=== PATIENT | male | born 1985 | race Hispanic/Latino ===

== ENCOUNTER 2018-12-05 23:35 | Emergency (ER) | payer SELFPAY ==
--- NOTE | 2018-12-06 03:18 | EDPHYS ---
Physician Documentation [facility] Name: Errol De Los Santos Age: 33 yrs Sex: Male : 1985 Arrival Date: 12/05/2018 Time: 23:36 Bed 10 Private MD: ED Physician Abel Logan HPI: 12/06 02:23 This 33 yrs old Male presents to ER via Ambulatory with complaints of Cough, cp Chills, Headache. 02:23 The patient or guardian reports cough, that is intermittent. Onset: The cp symptoms/episode began/occurred yesterday. 02:25 Severity of symptoms: in the emergency department the symptoms are unchanged, despite cp home interventions. 02:25 Associated signs and symptoms: Pertinent negatives: chest pain, ear ache, rhinorrhea, cp sore throat, vomiting. Historical: - Allergies: 12/05 23:48 No Known Allergies; jd3 - Home Meds: 23:48 None [Active]; jd3 - PMHx: 23:48 None; jd3 - PSHx: 23:48 None; jd3 - Immunization history:: Adult Immunizations up to date. - Social history:: Smoking status: Patient/guardian denies using tobacco. - Ebola Screening: : Patient negative for fever greater than or equal to 101.5 degrees Fahrenheit, and additional compatible Ebola Virus Disease symptoms. ROS: 12/06 02:30 Constitutional: Positive for chills, poor PO intake, Negative for body aches, fever. cp 02:30 Eyes: Negative for injury, pain, redness, and discharge. cp 02:30 ENT: Positive for sore throat, Negative for drainage from ear(s), ear pain, difficulty swallowing, difficulty handling secretions. 02:30 Neck: Negative for stiffness. 02:30 Respiratory: Positive for cough, with no reported sputum, Negative for shortness of breath, wheezing. 02:30 Abdomen/GI: Negative for abdominal pain, vomiting, diarrhea, constipation. 02:30 Skin: Negative for rash. 02:30 Neuro: Positive for headache, Negative for altered mental status, weakness. 02:30 All other systems are negative. Exam: 02:35 Constitutional: The patient appears in no acute distress, alert, awake, non-toxic, well cp developed, well nourished. 02:35 Head/Face: Normocephalic, atraumatic. cp 02:35 Eyes: Periorbital structures: appear normal, Conjunctiva: normal, no exudate, no injection, Lids and lashes: appear normal, bilaterally. 02:35 ENT: External ear(s): are unremarkable, Ear canal(s): are normal, clear, TM's: bulging, is not appreciated, bilaterally, dullness, bilaterally, erythema, is not appreciated, bilaterally, Nose: is normal, Mouth: Lips: moist, Oral mucosa: pink and intact, moist, Posterior pharynx: Airway: no evidence of obstruction, patent, Tonsils: no enlargement, no exudate, Uvula: midline, swelling, is not appreciated, erythema, that is mild, exudate, is not appreciated. 02:35 Neck: ROM/movement: is normal, is supple, without pain, no range of motions limitations, no meningismus, no nuchal rigidity, Lymph nodes: no appreciated lymphadenopathy. 02:35 Chest/axilla: Inspection: normal, Palpation: is normal, no crepitus, no tenderness. 02:35 Cardiovascular: Rate: normal, Rhythm: regular. 02:35 Respiratory: the patient does not display signs of respiratory distress, Respirations: normal, no use of accessory muscles, no retractions, no splinting, no tachypnea, labored breathing, is not present, Breath sounds: are clear throughout, no decreased breath sounds, no stridor, no wheezing. 02:35 Skin: no rash present. Vital Signs: 12/05 23:48 BP 153 / 96; Pulse 70; Resp 17 S; Temp 98.2(O); Pulse Ox 98% on R/A; Weight 108.86 kg jd3 (R); Height 5 ft. 4 in. (162.56 cm) (R); Pain 0/10; 23:48 Body Mass Index 41.20 (108.86 kg, 162.56 cm) jd3 MDM: 12/06 01:50 Patient medically screened. cp 02:30 Differential Diagnosis: Bronchitis Influenza Sinusitis Pharyngitis Otitis Media cp Pneumonia. 03:17 Data reviewed: vital signs, nurses notes, lab test result(s), and as a result, I will cp discharge patient. 03:17 Counseling: I had a detailed discussion with the patient and/or guardian regarding: the cp historical points, exam findings, and any diagnostic results supporting the discharge/admit diagnosis, lab results, to return to the emergency department if symptoms worsen or persist or if there are any questions or concerns that arise at home. 12/06 02:22 Order name: Influenza Screen (a \T\ B) cp 12/06 02:22 Order name: Strep cp 12/06 03:01 Order name: Throat Culture EDMS Administered Medications: No medications were administered Disposition: 12/06/18 03:18 Discharged to Home. Impression: Acute upper respiratory infection, unspecified. - Condition is Stable. - Discharge Instructions: Upper Respiratory Infection, Adult, Viral Respiratory Infection. - Prescriptions for Ibuprofen 800 mg Oral Tablet - take 1 tablet by ORAL route every 8 hours As needed take with food; 30 tablet. Tessalon Perles 100 mg Oral Capsule - take 2 capsule by ORAL route every 8 hours As needed; 20 capsule. - Medication Reconciliation Form, Thank You Letter, Antibiotic Education, Prescription Opioid Use form. - Follow up: Private Physician; When: 2 - 3 days; Reason: Worsening of condition. - Problem is new. - Symptoms are unchanged. Addendum: 12/07/2018 11:40 Co-signature as Attending Physician, Abel Logan MD I agree with the assessment and w a plan of care. Signatures: Dispatcher [employer] EDFL Yousif Judd PA PA cp Appiah, William, MD MD wa Davies, Jonathon, RN RN jAston Sheth RN RN fu Corrections: (The following items were deleted from the chart) 12/06 03:48 03:18 12/06/2018 03:18 Discharged to Home. Impression: Acute upper respiratory fu infection, unspecified. Condition is Stable. Forms are Medication Reconciliation Form, Thank You Letter, Antibiotic Education, Prescription Opioid Use. Follow up: Private Physician; When: 2 - 3 days; Reason: Worsening of condition. Problem is new. Symptoms are unchanged. cp
--- NOTE | 2018-12-06 03:18 | ER ---
Nurse's Notes [facility] Name: Errol De Los Santos Age: 33 yrs Sex: Male : 1985 Arrival Date: 12/05/2018 Time: 23:36 Bed 10 Private MD: Diagnosis: Acute upper respiratory infection, unspecified Presentation: 12/05 23:46 Presenting complaint: Patient states: "I have the cold chills since yesterday. I had a jd3 bad cough yesterday, bu that went away. today the chills and my thought is sore.". Transition of care: patient was not received from another setting of care. Onset of symptoms was December 04, 2018. Risk Assessment: Do you want to hurt yourself or someone else? Patient reports no desire to harm self or others. Initial Sepsis Screen: Does the patient meet any 2 criteria? No. Patient's initial sepsis screen is negative. Does the patient have a suspected source of infection? No. Patient's initial sepsis screen is negative. Care prior to arrival: None. 23:46 Method Of Arrival: Ambulatory j 23:46 Acuity: ALDO 4 jd3 Triage Assessment: 12/06 01:21 Headache History: Denies prior headaches. General: Appears in no apparent distress. jd3 comfortable, Behavior is calm, cooperative, appropriate for age. 01:21 Pain: Denies pain. Pain currently is 0 out of 10 on a pain scale. Pain began gradually, jd3 Also complains of no other associated symptoms. Neuro: Level of Consciousness is awake, alert, obeys commands, Oriented to person, place, time, situation, Appropriate for age. Cardiovascular: Denies chest pain, Capillary refill < 3 seconds Patient's skin is warm and dry. Respiratory: Airway is patent Respiratory effort is even, unlabored, Respiratory pattern is regular, symmetrical, Denies shortness of breath. GI: No signs and/or symptoms were reported involving the gastrointestinal system. : No signs and/or symptoms were reported regarding the genitourinary system. Derm: Skin is intact, Skin is dry, Skin is normal, Skin temperature is warm. Musculoskeletal: Circulation, motion, and sensation intact. Range of motion: intact in all extremities. Historical: - Allergies: 12/05 23:48 No Known Allergies; jd3 - Home Meds: 23:48 None [Active]; jd3 - PMHx: 23:48 None; jd3 - PSHx: 23:48 None; jd3 - Immunization history:: Adult Immunizations up to date. - Social history:: Smoking status: Patient/guardian denies using tobacco. - Ebola Screening: : Patient negative for fever greater than or equal to 101.5 degrees Fahrenheit, and additional compatible Ebola Virus Disease symptoms. Screenin/04 01:24 Abuse screen: Denies threats or abuse. Nutritional screening: No deficits noted. jd3 Tuberculosis screening: No symptoms or risk factors identified. Fall Risk Ambulatory Aid- None/Bed Rest/Nurse Assist (0 pts). Gait- Normal/Bed Rest/Wheelchair (0 pts) Mental Status- Oriented to own ability (0 pts). Total Rodriguez Fall Scale indicates No Risk (0-24 pts). Assessment: 01:25 Reassessment: see triage assessment. jd3 01:40 General: Appears in no apparent distress. comfortable, Behavior is calm, cooperative, fu appropriate for age, Reports chills for fever for sore throat for past 24 hours. Pain: Denies pain. Neuro: No deficits noted. Cardiovascular: Capillary refill < 3 seconds Patient's skin is warm and dry. Respiratory: Airway is patent Trachea midline Breath sounds are clear bilaterally. Respiratory: Reports cough that is productive, with greenish secretions in small amount. GI: Abdomen is round last BM yesterday. denies nausea, vomiting. : No signs and/or symptoms were reported regarding the genitourinary system. Musculoskeletal: No signs and/or symptoms reported regarding the musculoskeletal system. Vital Signs: 12/05 23:48 BP 153 / 96; Pulse 70; Resp 17 S; Temp 98.2(O); Pulse Ox 98% on R/A; Weight 108.86 kg jd3 (R); Height 5 ft. 4 in. (162.56 cm) (R); Pain 0/10; 23:48 Body Mass Index 41.20 (108.86 kg, 162.56 cm) jd3 ED Course: 23:36 Patient arrived in ED. am2 23:47 Triage completed. jd3 23:49 Arm band placed on. jd3 12/06 01:20 Aston Paz, RN is Primary Nurse. fu 01:24 Patient has correct armband on for positive identification. Bed in low position. Call jd3 light in reach. Side rails up X 1. 01:50 [facility] cp 01:50 Abel Logan MD is Attending Physician. cp 02:23 ED physician in patient room. fu 02:49 Strep Sent. fu 02:49 Influenza Screen (a \\T\\ B) Sent. fu 03:47 No provider procedures requiring assistance completed. Patient did not have IV access fu during this emergency room visit. Administered Medications: No medications were administered Outcome: 03:18 Discharge ordered by . cp 03:46 Discharged to home ambulatory. fu 03:46 Condition: good 03:46 Discharge instructions given to patient, Instructed on discharge instructions, follow up and referral plans. Demonstrated understanding of instructions, follow-up care, medications, Prescriptions given X 2. 03:48 Patient left the ED. fu Signatures: Yousif Judd PA PA cp Moreno, Amanda am2 Davies, Jonathon RN RN jAston Sheth RN RN fu
== END 2018-12-06 03:48 | disposition home or self-care (01) ==
LOC: ER 23:35
DX: J06.9 Acute upper respiratory infection, unspecified (principal)
CPT/HCPCS: 87070; 87081; 87804; 99283

== ENCOUNTER 2019-03-16 01:04 | Emergency (ER) | payer SELFPAY ==
[2019-03-16] MEDS ORDERED: NA CHLORIDE 0.9% 1,000 ML ONE (02:13)
[2019-03-16 02:24] LABS: Absolute Lymphocytes (CBC) 2.8 K/uL (0.7-4.9); Eosinophils % 3.2 % (0-4.4); Hematocrit 50.4 % (39.6-49.0); Lymphocytes % 36.3 % (15.3-44.8); MPV 9.8 fL (7.6-11.3); Monocytes % 8.3 % (3.3-12.3); RBC Red Blood Cell Count 6.03 M/uL (4.33-5.43)
[2019-03-16 02:37] LABS: Potassium 3.7 mmol/L (3.5-5.1)
[2019-03-16] MEDS ORDERED: CEFTRIAXONE/SWI 1gm 1 GM/10 ML SYR ONE ×2 (03:53→04:34)
[2019-03-16 04:40] LABS: Urine Bacteria <20 /HPF (NONE SEEN); Urine Culture Reflex Order NOT NEEDED; Urine RBC TNTC /HPF (NONE SEEN)
[2019-03-16 05:27] LABS: Urine Blood 3+ (NEG); Urine Glucose NEGATIVE (NEG); Urine Protein 3+ (NEG); Urine Specific Gravity 1.025 (1.005-1.030); Urine pH 6.5 (5.0-7.0)
--- NOTE | 2019-03-16 05:34 | ER ---
Nurse's Notes [facility] Name: Errol De Los Santos Age: 34 yrs Sex: Male : 1985 Arrival Date: 03/16/2019 Time: 01:07 Bed 5 Private MD: Diagnosis: Retention of urine;Hematuria Presentation: 03/16 01:17 Presenting complaint: Patient states: He has noticed blood in his urine for approx 2 tl1 days and then earlier tonight when he was urinating the flow stopped and he was unable to urinate anymore. Transition of care: patient was not received from another setting of care. Onset of symptoms was March 13, 2019. Risk Assessment: Do you want to hurt yourself or someone else? Patient reports no desire to harm self or others. Initial Sepsis Screen: Does the patient meet any 2 criteria? No. Patient's initial sepsis screen is negative. Does the patient have a suspected source of infection? No. Patient's initial sepsis screen is negative. Care prior to arrival: None. 01:17 Method Of Arrival: Ambulatory tl1 01:17 Acuity: ALDO 4 tl1 Historical: - Allergies: 01:19 No Known Allergies; tl1 - Home Meds: 01:19 None [Active]; tl1 - PMHx: 01:19 None; tl1 - PSHx: 01:19 None; tl1 - Immunization history:: Adult Immunizations up to date. - Social history:: Smoking status: Patient/guardian denies using tobacco, never smoked. - Ebola Screening: : Patient negative for fever greater than or equal to 101.5 degrees Fahrenheit, and additional compatible Ebola Virus Disease symptoms Patient denies exposure to infectious person Patient denies travel to an Ebola-affected area in the 21 days before illness onset. Screenin:43 Abuse screen: Denies threats or abuse. Denies injuries from another. Nutritional rr5 screening: No deficits noted. Tuberculosis screening: No symptoms or risk factors identified. Fall Risk None identified. Total Rodriguez Fall Scale indicates No Risk (0-24 pts). Assessment: 01:20 General: Appears in no apparent distress. comfortable, Behavior is calm, cooperative, rr5 appropriate for age. 01:20 Pain: Denies pain. Neuro: Level of Consciousness is awake, alert, obeys commands, rr5 Oriented to person, place, time, situation, Appropriate for age. Cardiovascular: Capillary refill < 3 seconds Patient's skin is warm and dry. Respiratory: Airway is patent Respiratory effort is even, unlabored, Respiratory pattern is regular, symmetrical. GI: No signs and/or symptoms were reported involving the gastrointestinal system. Abdomen is round non-distended, obese. : Urine is blood tinged, drop of urine red in color Reports inability to void, blood in urine. EENT: No signs and/or symptoms were reported regarding the EENT system. Derm: Skin is intact, Skin temperature is warm. Musculoskeletal: Circulation, motion, and sensation intact. Capillary refill < 3 seconds. 01:53 Reassessment: unable to pass urine. ED provider aware with order made and carried out. rr5 02:10 Reassessment: Patient appears in no apparent distress at this time. Patient and/or rr5 family updated on plan of care and expected duration. Pain level reassessed. Patient is alert, oriented x 3, equal unlabored respirations, skin warm/dry/pink. awaiting for results and urine sample. 03:00 Reassessment: Patient appears in no apparent distress at this time. Patient is alert, rr5 oriented x 3, equal unlabored respirations, skin warm/dry/pink. still un able to pass urine. ED provider aware with order made and carried out. 04:05 Reassessment: bladder irrigation done using NS 1500ml. blood clots noted. ED provider rr5 aware. 05:00 Reassessment: Patient appears in no apparent distress at this time. Patient and/or rr5 family updated on plan of care and expected duration. Pain level reassessed. Patient is alert, oriented x 3, equal unlabored respirations, skin warm/dry/pink. no complaints made. draining light red urine still with blood clots. 06:00 Reassessment: Patient appears in no apparent distress at this time. Patient and/or rr5 family updated on plan of care and expected duration. Pain level reassessed. Patient is alert, oriented x 3, equal unlabored respirations, skin warm/dry/pink. discharge instruction given and explained without complaints made. went home with Russ catheter in placed for follow up to urologist. Patient states symptoms have improved. Vital Signs: 01:19 BP 154 / 100; Pulse 74; Resp 17; Temp 98; Pulse Ox 98% ; Weight 113.4 kg; Height 5 ft. tl1 4 in. (162.56 cm); Pain 0/10; 02:00 BP 151 / 95; Pulse 88; Resp 16; Pulse Ox 100% on R/A; rr5 02:45 BP 141 / 75; Pulse 79; Resp 17; Pulse Ox 99% ; Pain 0/10; rr5 03:25 BP 131 / 70; Pulse 79; Resp 16; Pulse Ox 99% ; rr5 04:10 BP 132 / 65; Pulse 80; Resp 16; Pulse Ox 99% on R/A; rr5 05:05 BP 125 / 62; Pulse 72; Resp 15; Pulse Ox 98% on R/A; rr5 06:00 BP 129 / 70; Pulse 75; Resp 17; Temp 97.9; Pulse Ox 99% ; Pain 0/10; rr5 01:19 Body Mass Index 42.91 (113.40 kg, 162.56 cm) tl1 ED Course: 01:07 Patient arrived in ED. mr 01:12 Yousif Judd PA is PHCP. cp 01:12 Lele Olivas MD is Attending Physician. cp 01:19 Triage completed. tl1 01:20 Arm band placed on right wrist. tl1 01:20 Patient has correct armband on for positive identification. Placed in gown. Bed in low rr5 position. Call light in reach. Side rails up X2. Pulse ox on. NIBP on. 01:27 Filiberto Anthony, RN is Primary Nurse. rr5 01:43 Bladder scan completed. 258 ml. rr5 02:05 Inserted saline lock: 20 gauge in right forearm, using aseptic technique. Blood rr5 collected. 02:46 Bladder scan completed. 364ml. rr5 03:20 Russ cath inserted, using sterile technique, 16 Fr., by tn, balloon inflated, urine rr5 specimen collected. Patient tolerated well. bloody urine with blood clots noted. positive drain 500ml.ED provider aware. 03:54 CT Stone Protocol In Process Unspecified. EDMS 05:33 Zhanna Mcintyre MD is Referral Physician. gs 05:33 Angel Olivas MD is Referral Physician. gs 06:00 No provider procedures requiring assistance completed. IV discontinued, intact, rr5 bleeding controlled, No redness/swelling at site. Pressure dressing applied. Administered Medications: 02:07 Drug: NS 0.9% 1000 ml Route: IV; Rate: 1 bolus; Site: right forearm; rr5 02:50 Follow up: Response: No adverse reaction; IV Status: Completed infusion; IV Intake: rr5 1000ml 03:45 Drug: Rocephin - (cefTRIAXone) 2 grams Route: IVPB; Infused Over: 30 mins; Site: right rr5 forearm; 04:45 Follow up: Response: No adverse reaction; IV Status: Completed infusion; IV Intake: rr5 100ml Intake: 02:50 IV: 1000ml; Total: 1000ml. rr5 04:45 IV: 100ml; Total: 1100ml. rr5 Output: 03:20 Urine: 500ml (Russ); Total: 500ml. rr5 06:00 Urine: 400ml (Russ); Total: 900ml. rr5 Outcome: 05:34 Discharge ordered by . gs 06:00 Discharged to home ambulatory, with family. rr5 06:00 Condition: stable 06:00 Discharge instructions given to patient, family, Instructed on discharge instructions, follow up and referral plans. medication usage, russ catheter care Demonstrated understanding of instructions, follow-up care, medications, russ catheter care Prescriptions given X 1. 06:03 Patient left the ED. rr5 Signatures: Dispatcher [employer] Ami Larios FelicianoIda malin, RN RN tl1 Yousif Judd PA PA cp Starr, Gregory, MD MD gs Roque, Raymond, RN RN rr5
--- NOTE | 2019-03-16 05:34 | EDPHYS ---
Physician Documentation [facility] Name: Errol De Los Santos Age: 34 yrs Sex: Male : 1985 Arrival Date: 03/16/2019 Time: 01:07 Bed 5 Private MD: ED Physician Lele Olivas HPI: 03/16 01:25 This 34 yrs old Male presents to ER via Ambulatory with complaints of Urinary cp Problem. 01:25 The patient presents with urinary symptoms, unable to void, hematuria. cp 01:25 Onset: The symptoms/episode began/occurred noticed blood in urine times 2 days and cp inability to urinate started yesterday. Associated signs and symptoms: Pertinent negatives: abdominal pain, constipation, diarrhea, fever, vomiting. Severity of symptoms: in the emergency department the symptoms are unchanged, despite home interventions. The patient has not experienced similar symptoms in the past. Historical: - Allergies: 01:19 No Known Allergies; tl1 - Home Meds: 01:19 None [Active]; tl1 - PMHx: 01:19 None; tl1 - PSHx: 01:19 None; tl1 - Immunization history:: Adult Immunizations up to date. - Social history:: Smoking status: Patient/guardian denies using tobacco, never smoked. - Ebola Screening: : Patient negative for fever greater than or equal to 101.5 degrees Fahrenheit, and additional compatible Ebola Virus Disease symptoms Patient denies exposure to infectious person Patient denies travel to an Ebola-affected area in the 21 days before illness onset. ROS: 01:40 Constitutional: Negative for body aches, chills, fever, poor PO intake. cp 01:40 Eyes: Negative for injury, pain, redness, and discharge. cp 01:40 Cardiovascular: Negative for chest pain, edema, palpitations. 01:40 Respiratory: Negative for cough, shortness of breath, wheezing. 01:40 Abdomen/GI: Negative for abdominal pain, nausea, vomiting, and diarrhea, constipation, black/tarry stool, rectal bleeding. 01:40 Back: Negative for pain at rest, pain with movement. 01:40 : Positive for hematuria, difficulty urinating, Negative for penile pain, testicular pain 01:40 Neuro: Negative for altered mental status, headache, weakness. 01:40 All other systems are negative. Exam: 01:45 Constitutional: The patient appears in no acute distress, alert, awake, non-toxic, well cp developed, well nourished. 01:45 Head/Face: Normocephalic, atraumatic. cp 01:45 Eyes: Periorbital structures: appear normal, Conjunctiva: normal, no exudate, no injection, Sclera: no appreciated abnormality, Lids and lashes: appear normal, bilaterally. 01:45 ENT: External ear(s): are unremarkable, Nose: is normal, Mouth: Lips: moist, Oral mucosa: pink and intact, moist, Posterior pharynx: is normal, airway is patent, no erythema, no exudate. 01:45 Chest/axilla: Inspection: normal, Palpation: is normal, no crepitus, no tenderness. 01:45 Cardiovascular: Rate: normal, Rhythm: regular, Edema: is not appreciated, JVD: is not appreciated. 01:45 Respiratory: the patient does not display signs of respiratory distress, Respirations: normal, no use of accessory muscles, no retractions, no splinting, no tachypnea, labored breathing, is not present, Breath sounds: are clear throughout, no decreased breath sounds, no stridor, no wheezing. 01:45 Abdomen/GI: Inspection: abdomen appears normal, Palpation: abdomen is soft and non-tender, in all quadrants. 01:45 Back: CVA tenderness, is absent. Vital Signs: 01:19 BP 154 / 100; Pulse 74; Resp 17; Temp 98; Pulse Ox 98% ; Weight 113.4 kg; Height 5 ft. tl1 4 in. (162.56 cm); Pain 0/10; 02:00 BP 151 / 95; Pulse 88; Resp 16; Pulse Ox 100% on R/A; rr5 02:45 BP 141 / 75; Pulse 79; Resp 17; Pulse Ox 99% ; Pain 0/10; rr5 03:25 BP 131 / 70; Pulse 79; Resp 16; Pulse Ox 99% ; rr5 04:10 BP 132 / 65; Pulse 80; Resp 16; Pulse Ox 99% on R/A; rr5 05:05 BP 125 / 62; Pulse 72; Resp 15; Pulse Ox 98% on R/A; rr5 06:00 BP 129 / 70; Pulse 75; Resp 17; Temp 97.9; Pulse Ox 99% ; Pain 0/10; rr5 01:19 Body Mass Index 42.91 (113.40 kg, 162.56 cm) tl1 MDM: 01:12 Patient medically screened. cp 05:32 ED course: pt seen and examined hematuria and urinary obstruction possible bladder mass gs will keep russ in treat with abx refer to urology. 03/16 01:21 Order name: Urine Microscopic Only; Complete Time: 05:29 cp 03/16 01:52 Order name: Basic Metabolic Panel; Complete Time: 02:58 cp 03/16 02:58 Interpretation: Normal except: CL 108; GLUC 107; GFR 75. cp 03/16 01:52 Order name: CBC with Diff; Complete Time: 02:32 cp 03/16 02:32 Interpretation: Normal except: RBC 6.03; HCT 50.4. 03/16 01:52 Order name: Creatinine for Radiology; Complete Time: 02:58 cp 03/16 03:09 Order name: CT Stone Protocol 03/16 03:32 Order name: Urine Dipstick--Ancillary (enter results); Complete Time: 05:29 mw2 03/16 01:21 Order name: Bladder Scanner: pre and post void; Complete Time: 03:26 cp 03/16 01:21 Order name: Urine Dipstick-Ancillary (obtain specimen); Complete Time: 03:26 03/16 01:52 Order name: IV Saline Lock; Complete Time: 02:07 cp 03/16 01:52 Order name: Labs collected and sent; Complete Time: 02:07 03/16 04:23 Order name: Russ; Complete Time: 04:23 rr5 03/16 04:23 Order name: Bladder Irrigation; Complete Time: 04:23 rr5 Administered Medications: 02:07 Drug: NS 0.9% 1000 ml Route: IV; Rate: 1 bolus; Site: right forearm; rr5 02:50 Follow up: Response: No adverse reaction; IV Status: Completed infusion; IV Intake: rr5 1000ml 03:45 Drug: Rocephin - (cefTRIAXone) 2 grams Route: IVPB; Infused Over: 30 mins; Site: right rr5 forearm; 04:45 Follow up: Response: No adverse reaction; IV Status: Completed infusion; IV Intake: rr5 100ml Disposition: 03/17 01:31 Co-signature as Attending Physician, Lele Olivas MD. Disposition: 03/16/19 05:34 Discharged to Home. Impression: Retention of urine, Hematuria. - Condition is Stable. - Discharge Instructions: Hematuria, Adult, Acute Urinary Retention, Male, Russ Catheter Care, Adult, [id number]. - Prescriptions for Keflex 500 mg Oral Capsule - take 1 capsule by ORAL route every 12 hours for 10 days; 20 capsule. - Medication Reconciliation Form, Thank You Letter, Antibiotic Education, Prescription Opioid Use form. - Follow up: Zhanna Mcintyre MD; When: 2 - 3 days; Reason: Re-evaluation by your physician. Follow up: Angel Olivas MD; When: 2 - 3 days; Reason: Re-evaluation by your physician. Signatures: Dispatcher [employer] EDMS Ida Rodriguez RN RN tl1 Yousif Judd PA PA cp Starr, Gregory, MD MD Filiberto Anthony RN RN rr5 Corrections: (The following items were deleted from the chart) 03/16 06:03 05:34 03/16/2019 05:34 Discharged to Home. Impression: Retention of urine; Hematuria. rr5 Condition is Stable. Forms are Medication Reconciliation Form, Thank You Letter, Antibiotic Education, Prescription Opioid Use. Follow up: Zhanna Mcintyre; When: 2 - 3 days; Reason: Re-evaluation by your physician. Follow up: Angel Olivas; When: 2 - 3 days; Reason: Re-evaluation by your physician.
--- NOTE | 2019-03-18 11:43 | RAD REPORT ---
EXAM DESCRIPTION: CT ABDOMEN AND PELVIS WITHOUT CONTRAST. 03/16/2019 4:23 AM CDT CLINICAL HISTORY: Urinary retention COMPARISON: None. TECHNIQUE: Axial unenhanced [address] imaging of the abdomen and pelvis performed. Reformatted coronal and sagittal images reviewed. A dose reduction technique was utilized with automated exposure control according to patient size. FINDINGS: LOWER THORAX: Clear lung bases. Heart is normal in size. No pericardial fluid. ABDOMEN: LIVER/GALLBLADDER: Normal liver size and contour. Mild decreased attenuation due to fatty infiltrati on. Normal gallbladder. SPLEEN/PANCREAS: Normal spleen. Normal pancreas. KIDNEYS/ADRENAL GLANDS: Normal adrenal glands. Normal right and left kidney. RETROPERITONEAL VESSELS/NODES: Normal caliber aorta and inferior vena cava. No adenopathy. BOWEL: Small hiatal hernia. Normal remaining stomach. Small bowel loops appear normal. Appendix is n ot visualized. Mild descending and sigmoid colon diverticulosis. No diverticulitis. MESENTERY/PERITONEUM: No adenopathy. No ascites. No free air. Tiny fat-containing ventral hernia. PELVIS: BLADDER: There is a Herron catheter within the bladder. There is a hyperdense collection along the le ft bladder lumen which may represent blood products or mass. GENITAL ORGANS: The prostate appears normal. PERITONEUM: No pelvic free fluid or adenopathy. BONES AND SOFT TISSUES: Mild degenerative changes in the lower thoracic spine. No subluxation. Intac t bony pelvis. Normal hips. IMPRESSION: 1. Hyperdense collection in the left bladder lumen may represent blood products. A lobul ar solid mass is also within differential. 2. Mild fatty liver infiltration. 3. Small hiatal hernia. 4. Mild descending and sigmoid colon diverticulosis. No diverticulitis. Electronically signed by: Ciara Ryder DO 03/16/2019 4:26 AM CDT Due to temporary technical issues with the PACS/Fluency reporting system, reports are being signed by the in house radiologist as a courtesy to ensure prompt reporting. The interpreting radiologist is f janellely responsible for the content of the report.
== END 2019-03-16 06:03 | disposition home or self-care (01) ==
LOC: ER 01:04
DX: R31.9 Hematuria, unspecified (principal)
CPT/HCPCS: 36415; 51702; 74176; 76377; 80048; 81003; 81015; 85025; 96361; 96365; 99284; J0696; J7030

== ENCOUNTER 2020-09-23 10:01 | Emergency (ER) | payer SELFPAY ==
--- OUTSIDE RECORDS SUMMARY | 2020-09-23 10:02 | XMS REPORT | Continuity of Care Document ---
:1985 Author Organization [facility] t Address [address] [place] [address] Care Team Providers Name Role Phone Unavailable Unavailable Unavailable Problems Condition Condition Condition Status Onset Resolution Last Treating Co mments Source Name Details Category Date Date Treatment Clinician Date Carpal Carpal Diagnosis Active [facility] tunnel [facility] - syndrome syndrome [facility] Carpal Carpal Diagnosis Active [facility] tunnel tunnel [facility] - syndrome syndrome [facility] of left [facility] Right hand Right hand Diagnosis Active [facility] Clinics Left hand Left hand Diagnosis Active [facility] ent Clinics Allergies, Adverse Reactions, Alerts This patient has no known allergies or adverse reactions. Medications Ordered Filled Start Stop Current Ordering Indication Dosage Frequency Signature Comments Components Source Medication Medication Date Date Medication? Clinician (SIG) Name Name Carmine Lou 2018-09 2019- No Cecilio [address] [facility] - 00:00: 00:00 [facility] 00 :00 [facility] ent [facility] Procedures This patient has no known procedures. Encounters Start End Encounter Admission Attending Care Care Encounter Source Date/Time Date/Time Type Type Clinicians Facility Department ID 2019-08-19 2019-08-19 Outpatient Anastacia Ybarra [id number] [facility] 2019-07-08 2019-07-08 Outpatient Anastacia Ybarra [id number] [facility] 09:37:00 09:37:00 [facility] 2019-07-08 2019-07-08 Outpatient Anastacia Ybarra [id number] [facility] 09[facility] 09[facility] Results This patient has no known results.
[2020-09-23] MEDS ORDERED: KETOROLAC 30 MG/ML INJ ONE (10:40)
--- NOTE | 2020-09-23 11:52 | RAD REPORT ---
EXAM DESCRIPTION: RAD - Shoulder Right 2 View - 09/23/2020 10:39 am CLINICAL HISTORY: Right shoulder pain FINDINGS: No fracture or dislocation is seen. Mild narrowing AC joint
--- NOTE | 2020-09-23 11:55 | ER ---
Nurse's Notes [facility] Name: Errol De Los Santos Age: 35 yrs Sex: Male : 1985 Arrival Date: 09/23/2020 Time: 10:04 Bed 23 Private MD: Diagnosis: Pain in right shoulder Presentation: 09/23 10:10 Chief complaint: Patient states: R shoulder pain for 2 weeks. Fell off a ladder 2 weeks ll1 ago. Coronavirus screen: Client denies travel out of the [place] in the last 14 days. At this time, the client does not indicate any symptoms associated with coronavirus-19. Ebola Screen: Patient denies travel to an Ebola-affected area in the 21 days before illness onset. Initial Sepsis Screen: Does the patient meet any 2 criteria? No. Patient's initial sepsis screen is negative. Does the patient have a suspected source of infection? Yes: Bone or joint infection. Risk Assessment: Do you want to hurt yourself or someone else? Patient reports no desire to harm self or others. Onset of symptoms was September 09, 2020. 10:10 Method Of Arrival: Ambulatory ll1 10:10 Acuity: ALDO 4 ll1 Historical: - Allergies: 10:09 No Known Allergies; ll1 - PMHx: 10:09 None; ll1 - PSHx: 10:09 None; ll1 - Immunization history:: Flu vaccine is not up to date. - Social history:: Smoking status: Patient denies any tobacco usage or history of. Screenin:50 Abuse screen: Denies threats or abuse. Denies injuries from another. Nutritional ph screening: No deficits noted. Tuberculosis screening: No symptoms or risk factors identified. Fall Risk None identified. Assessment: 11:49 General: Appears in no apparent distress. comfortable, Behavior is calm, cooperative, ph appropriate for age. Pain: Complains of pain in anterior aspect of right shoulder and posterior aspect of right shoulder Pain does not radiate. Neuro: Level of Consciousness is awake, alert, obeys commands, Oriented to person, place, time, situation. Cardiovascular: Capillary refill < 3 seconds in bilateral fingers Patient's skin is warm and dry. Respiratory: Airway is patent Respiratory effort is even, unlabored. Derm: Skin is intact, is healthy with good turgor, Skin is pink, warm \T\ dry. Musculoskeletal: Circulation, motion, and sensation intact. Range of motion: intact in all extremities. Vital Signs: 10:10 BP 158 / 99; Pulse 74; Resp 18; Temp 97.8; Pulse Ox 100% ; Weight 117.48 kg; Height 5 ll1 ft. 3 in. (160.02 cm); Pain 7/10; 12:27 BP 137 / 86; Pulse 74; Resp 18; Temp 97.9; Pulse Ox 99% on R/A; ph 10:10 Body Mass Index 45.88 (117.48 kg, 160.02 cm) ll1 ED Course: 10:04 Patient arrived in ED. mr 10:09 Arm band placed on Patient placed in an exam room, on a stretcher. ll1 10:11 Triage completed. 1 10:13 Alex Grimes PA is PHCP. m 10:13 Jerson Batres MD is Attending Physician. m 10:14 Nadine Ortega RN is Primary Nurse. ph 10:39 Shoulder Right (2 View) XRAY In Process Unspecified. EDMS 11:50 Patient has correct armband on for positive identification. Bed in low position. Call ph light in reach. Side rails up X 1. Door closed. Noise minimized. 11:55 Garcia Mendiola MD is Referral Physician. [facility] 12:28 No provider procedures requiring assistance completed. Patient did not have IV access ph during this emergency room visit. Administered Medications: 10:38 Drug: Ketorolac 30 mg Route: IM; Site: right deltoid; ph 12:27 Follow up: Response: No adverse reaction ph Outcome: 11:55 Discharge ordered by . [facility] 12:28 Discharged to home ambulatory. ph 12:28 Condition: good 12:28 Discharge instructions given to patient, Instructed on discharge instructions, follow up and referral plans. medication usage, Demonstrated understanding of instructions, follow-up care, medications, Prescriptions given X 1. 12:29 Patient left the ED. ph Signatures: Dispatcher [employer] EDMS Alex Grimes PA PA jmm Rivermartin Ami Nadine Ortega, RN RN ph Carmita Andrew RN RN [facility]
--- NOTE | 2020-09-23 11:55 | EDPHYS ---
Physician Documentation [facility] Name: Errol De Los Santos Age: 35 yrs Sex: Male : 1985 Arrival Date: 09/23/2020 Time: 10:04 Bed 23 Private MD: ED Physician Jerson Batres HPI: 09/23 10:18 This 35 yrs old Male presents to ER via Ambulatory with complaints of Shoulder jmm Pain. 10:18 The patient or guardian complains of an injury, pain. Onset: The symptoms/episode jmm began/occurred acutely, 2 week(s) ago. Modifying factors: the symptoms are alleviated by nothing. The symptoms are aggravated by movement. Associated signs and symptoms: Pertinent negatives: chest pain. This is a 35 year old male with no chronic medical conditions that presents to the ED with complaints of right shoulder pain which occurred after a fall. Patient states falling 6 feet from a ladder and have continued anterior shoulder pain. Denies chest pain, denies shortness of breath. Historical: - Allergies: 10:09 No Known Allergies; ll1 - PMHx: 10:09 None; ll1 - PSHx: 10:09 None; ll1 - Immunization history:: Flu vaccine is not up to date. - Social history:: Smoking status: Patient denies any tobacco usage or history of. ROS: 10:18 Constitutional: Negative for fever, chills, and weight loss, Cardiovascular: Negative jmm for chest pain, palpitations, and edema, Respiratory: Negative for shortness of breath, cough, wheezing, and pleuritic chest pain. 10:18 MS/extremity: Positive for injury or acute deformity, pain. 10:18 All other systems are negative. Exam: 10:18 Constitutional: This is a well developed, well nourished patient who is awake, alert, jmm and in no acute distress. Head/Face: atraumatic. Eyes: EOMI, no conjunctival erythema appreciated ENT: Moist Mucus Membranes Neck: Trachea midline, Supple Chest/axilla: Normal chest wall appearance and motion. Cardiovascular: Regular rate and rhythm. No edema appreciated Respiratory: Normal respirations, no respiratory distress appreciated Abdomen/GI: Non distended, soft Back: Normal ROM Skin: General appearance color normal 10:18 Skin: right anterior shoulder ttp, full senior marketing manager strength, abduction full, pain elicited on ROM. 10:18 Neuro: Orientation: is normal, Mentation: is normal, Memory: is normal. 10:18 Psych: Behavior/mood is pleasant, cooperative. Vital Signs: 10:10 BP 158 / 99; Pulse 74; Resp 18; Temp 97.8; Pulse Ox 100% ; Weight 117.48 kg; Height 5 ll1 ft. 3 in. (160.02 cm); Pain 7/10; 12:27 BP 137 / 86; Pulse 74; Resp 18; Temp 97.9; Pulse Ox 99% on R/A; ph 10:10 Body Mass Index 45.88 (117.48 kg, 160.02 cm) ll1 MDM: 10:15 Patient medically screened. dylan 11:53 Data reviewed: vital signs, nurses notes. Counseling: I had a detailed discussion with jackie the patient and/or guardian regarding: the historical points, exam findings, and any diagnostic results supporting the discharge/admit diagnosis, radiology results, the need for outpatient follow up, to return to the emergency department if symptoms worsen or persist or if there are any questions or concerns that arise at home. ED course: Imaging studies negative for an acute process. patient is advised to follow up with ortho for further evaluation. Patient understood and agrees with the plan of care. . 09/23 10:18 Order name: Shoulder Right (2 View) XRAY; Complete Time: 11:53 jackie Administered Medications: 10:38 Drug: Ketorolac 30 mg Route: IM; Site: right deltoid; ph 12:27 Follow up: Response: No adverse reaction ph Disposition: 09/23/20 11:55 Discharged to Home. Impression: Pain in right shoulder. - Condition is Stable. - Discharge Instructions: Shoulder Pain. - Prescriptions for Ibuprofen 800 mg Oral Tablet - take 1 tablet by ORAL route every 8 hours As needed take with food; 30 tablet. - Medication Reconciliation Form, Thank You Letter, Antibiotic Education, Prescription Opioid Use form. - Follow up: Garcia Mendiola MD; When: 2 - 3 days; Reason: Recheck today's complaints, Continuance of care, Re-evaluation by your physician. Addendum: 09/26/2020 07:01 Co-signature as Attending Physician, Jerson Batres MD. r n Signatures: Dispatcher [employer] EDMS Alex Grimes PA PA jmm Nieto, Jerson, MD MD rn Nadine Ortega RN RN ph Carmita Andrew RN RN ll1 Corrections: (The following items were deleted from the chart) 09/23 12:29 11:55 09/23/2020 11:55 Discharged to Home. Impression: Pain in right shoulder. ph Condition is Stable. Forms are Medication Reconciliation Form, Thank You Letter, Antibiotic Education, Prescription Opioid Use. Follow up: Garcia Mendiola; When: 2 - 3 days; Reason: Recheck today's complaints, Continuance of care, Re-evaluation by your physician. jackie
[2020-09-23 12:35] VITALS: BP 137/86; TEMP 97.9; O2SAT 99
== END 2020-09-23 12:29 | disposition home or self-care (01) ==
LOC: ER 10:01
DX: M25.511 Pain in right shoulder (principal)
CPT/HCPCS: 96372; 99283

== ENCOUNTER 2020-12-16 12:01 | Emergency (ER) | payer SELFPAY ==
--- OUTSIDE RECORDS SUMMARY | 2020-12-16 12:04 | XMS REPORT | Continuity of Care Document ---
:1985 Author Organization [facility] t Address [address] [place] [address] Care Team Providers Name Role Phone Unavailable Unavailable Unavailable Problems Condition Condition Condition Status Onset Resolution Last Treating Co mments Source Name Details Category Date Date Treatment Clinician Date Carpal Carpal Diagnosis Active [facility] tunnel tunnel [facility] - syndrome syndrome [facility] Right hand Right hand Diagnosis Active [facility]ics Left hand Left hand Diagnosis Active [facility] ent Clinics Carpal Carpal Diagnosis Active [facility] tunnel tunnel [facility] - syndrome syndrome Mem[facility] of right of right l wrist [facility] Allergies, Adverse Reactions, Alerts This patient has no known allergies or adverse reactions. Medications Ordered Filled Start Stop Current Ordering Indication Dosage Frequency Signature Comments Components Source Medication Medication Date Date Medication? Clinician (SIG) Name Name Carmine Lou 2018-09 2019- No Cecilio [address] [facility] 09[facility] - 00:00: 00:00 Mem[facility] 00 :00 [facility] ent Clinics Procedures This patient has no known procedures. Encounters Start End Encounter Admission Attending Care Care Encounter Source Date/Time Date/Time Type Type Clinicians Facility Department ID 2019-08-19 2019-08-19 Outpatient Anastacia Ybarra [id number] [facility] 10[facility] 10[facility] Clin[facility] 2019-07-08 2019-07-08 Outpatient Anastacia Ybarra [id number] [facility] 09:37:00 09:37:00 [facility] ent Clinics 2019-07-08 2019-07-08 Outpatient Anastacia Ybarra [id number] [facility] 09:00:00 09:00:00 [facility] Results This patient has no known results.
[2020-12-16 12:52] LABS: Absolute Lymphocytes (CBC) 1.9 K/uL (0.7-4.9); Basophils % 1.2 % (0-1.3); Hematocrit 50.1 % (39.6-49.0); Lymphocytes % 27.5 % (15.3-44.8); MPV 9.1 fL (7.6-11.3); RBC Red Blood Cell Count 6.18 M/uL (4.33-5.43)
[2020-12-16 13:05] LABS: Protime INR 1.1
--- NOTE | 2020-12-16 13:11 | RAD REPORT ---
EXAM DESCRIPTION: Rodrigo Single View12/16/2020 12:56 pm CLINICAL HISTORY: Chest pain COMPARISON: none FINDINGS: The lungs appear clear of acute infiltrate. The heart is normal size IMPRESSION: No acute abnormalities displayed
[2020-12-16 13:13] LABS: ALT/SGPT 160 U/L (12-78); AST/SGOT 50 U/L (15-37); Alkaline Phosphatase 145 U/L (45-117); BUN Blood Urea Nitrogen 10 mg/dL (7-18); Bicarbonate 29 mmol/L (21-32); Bilirubin Direct 0.1 mg/dL (0-0.2); Bilirubin Total 0.6 mg/dL (0.2-1.0); Glucose Level 129 mg/dL (74-106); Magnesium 2.3 mg/dL (1.8-2.4); NT PRO-BNP 55 pg/mL (<125); Potassium 3.3 mmol/L (3.5-5.1); Protein, Total 7.9 g/dL (6.4-8.2); Sodium Level 138 mmol/L (136-145); Troponin (Emerg Dept Use Only) < 0.02 ng/mL (0.0-0.045)
[2020-12-16] MEDS ORDERED: METOPROLOL TARTRATE 5 MG/5 ML INJ IV ONE (13:44)
--- NOTE | 2020-12-16 14:32 | ER ---
Nurse's Notes [facility] Name: Errol De Los Santos Age: 35 yrs Sex: Male : 1985 Arrival Date: 12/16/2020 Time: 12:03 Bed 6 Private MD: Diagnosis: Palpitations;Hypertensive heart disease Presentation: 12/16 12:09 Chief complaint: Patient states: Fast HR since last night. Just doesn't feel good. No ll1 CP or SOB. Coronavirus screen: Client denies travel out of the [place] in the last 14 days. At this time, the client does not indicate any symptoms associated with coronavirus-19. Ebola Screen: Patient denies travel to an Ebola-affected area in the 21 days before illness onset. Initial Sepsis Screen: Does the patient meet any 2 criteria? HR > 90 bpm. No. Patient's initial sepsis screen is negative. Does the patient have a suspected source of infection? No. Patient's initial sepsis screen is negative. Risk Assessment: Do you want to hurt yourself or someone else? Patient reports no desire to harm self or others. Onset of symptoms was December 15, 2020. 12:09 Method Of Arrival: Ambulatory ll1 12:09 Acuity: ALDO 2 ll1 Historical: - Allergies: 12:11 No Known Allergies; ll1 - PMHx: 12:11 None; ll1 - PSHx: 12:11 None; ll1 - Immunization history:: Flu vaccine is not up to date. Client reports having NOT received the Covid vaccine. - Social history:: Smoking status: Patient denies any tobacco usage or history of. Screenin:50 Abuse screen: Denies threats or abuse. Denies injuries from another. Nutritional ld1 screening: No deficits noted. Tuberculosis screening: No symptoms or risk factors identified. Fall Risk IV access (20 points). Total Rodriguez Fall Scale indicates No Risk (0-24 pts). Assessment: 12:50 General: Appears in no apparent distress. comfortable, Behavior is calm, cooperative, ld1 appropriate for age. Pain: Denies pain. Pain: Denies pain. Pain does not radiate. Pain began Denies pain. Neuro: Level of Consciousness is awake, alert, obeys commands, Oriented to person, place, time, situation. Cardiovascular: Reports palpitations, Patient states he has been feeling jittery since yesterday 12/15/2020. Capillary refill < 3 seconds Patient's skin is warm and dry. Respiratory: Airway is patent Respiratory effort is even, unlabored, Respiratory pattern is regular, symmetrical. GI: Abdomen is round obese, Bowel sounds present X 4 quads. : No signs and/or symptoms were reported regarding the genitourinary system. EENT: No signs and/or symptoms were reported regarding the EENT system. Derm: No signs and/or symptoms reported regarding the dermatologic system. 13:17 Reassessment: ERP at bedside discussing POC. ld1 14:10 Reassessment: Patient and/or family updated on plan of care and expected duration. Pain ld1 level reassessed. Patient is alert, oriented x 3, equal unlabored respirations, skin warm/dry/pink. BP decreased to 164/106. Patient denies pain. Patient denies pain at this time. Vital Signs: 12:09 BP 218 / 124; Pulse 98; Resp 19; Temp 98.2; Pulse Ox 95% ; Weight 113.4 kg; Height 5 ll1 ft. 3 in. (160.02 cm); Pain 0/10; 12:39 BP 195 / 117; Pulse 89; iw 12:50 BP 198 / 142; Pulse 80; Resp 18; Temp 98.2; Pulse Ox 98% on R/A; Weight 113.4 kg; ld1 Height 5 ft. 9 in. (175.26 cm); Pain 0/10; 14:00 BP 164 / 106; Pulse 65; Resp 21; Pulse Ox 98% ; sv 14:30 BP 159 / 101; Pulse 67; iw 12:50 Body Mass Index 36.92 (113.40 kg, 175.26 cm) ld1 ED Course: 12:03 Patient arrived in ED. ds1 12:11 Triage completed. ll1 12:11 Arm band placed on Patient placed in an exam room, on a stretcher. ll1 12:17 Reshma Haas RN is Primary Nurse. ld1 12:46 Nicholas Gonzalez MD is Attending Physician. kdr 12:50 Patient has correct armband on for positive identification. Placed in gown. Bed in low ld1 position. Call light in reach. Side rails up X 1. quality assurance monitor final on. Pulse ox on. NIBP on. Notified ED physician of other BP 198/114. 12:50 No provider procedures requiring assistance completed. Inserted saline lock: 20 gauge ld1 in right antecubital area, using aseptic technique. Blood collected. Patient maintains SpO2 saturation greater than 95% on room air. 12:54 XRAY Chest (1 view) In Process Unspecified. EDMS 14:44 IV discontinued, intact, bleeding controlled, No redness/swelling at site. Pressure iw dressing applied. Administered Medications: 13:40 Drug: Lopressor (metoprolol) 5 mg Route: IVP; Site: right antecubital; ld1 14:00 Follow up: Response: No adverse reaction; Blood pressure is lowered iw 14:43 Drug: Lisinopril 10 mg Route: PO; iw 14:44 Follow up: Response: No adverse reaction iw Outcome: 14:31 Discharge ordered by . kdr 14:44 Discharged to home ambulatory, with family. iw 14:44 Condition: good 14:44 Discharge instructions given to patient, Instructed on discharge instructions, follow up and referral plans. medication usage, Demonstrated understanding of instructions, follow-up care, medications, Prescriptions given X 1. 14:45 Patient left the ED. iw Signatures: Dispatcher [employer] EDMS Ehsa Lubin RN RN sv Rittger, Kevin, MD MD kdr Sanford, Demi ds1 Genny Lopez RN RN iw Lewis, Lynsay, RN RN ll1 Reshma Haas RN RN ld1
--- NOTE | 2020-12-16 14:32 | EDPHYS ---
Physician Documentation [facility] Name: Errol De Los Santos Age: 35 yrs Sex: Male : 1985 Arrival Date: 12/16/2020 Time: 12:03 Bed 6 Private MD: ED Physician Nicholas Gonzalez Historical: - Allergies: 12/16 12:11 No Known Allergies; ll1 - PMHx: 12:11 None; ll1 - PSHx: 12:11 None; ll1 - Immunization history:: Flu vaccine is not up to date. Client reports having NOT received the Covid vaccine. - Social history:: Smoking status: Patient denies any tobacco usage or history of. Exam: 14:44 ECG was reviewed by the Attending Physician. kdr Vital Signs: 12:09 BP 218 / 124; Pulse 98; Resp 19; Temp 98.2; Pulse Ox 95% ; Weight 113.4 kg; Height 5 ll1 ft. 3 in. (160.02 cm); Pain 0/10; 12:39 BP 195 / 117; Pulse 89; iw 12:50 BP 198 / 142; Pulse 80; Resp 18; Temp 98.2; Pulse Ox 98% on R/A; Weight 113.4 kg; ld1 Height 5 ft. 9 in. (175.26 cm); Pain 0/10; 14:00 BP 164 / 106; Pulse 65; Resp 21; Pulse Ox 98% ; sv 14:30 BP 159 / 101; Pulse 67; iw 12:50 Body Mass Index 36.92 (113.40 kg, 175.26 cm) ld1 MDM: 14:31 Patient medically screened. kdr 12/16 12:37 Order name: Basic Metabolic Panel iw 12/16 12:37 Order name: CBC with Diff iw 12/16 12:37 Order name: LFT's iw 12/16 12:37 Order name: Magnesium iw 12/16 12:37 Order name: NT PRO-BNP; Complete Time: 14:29 iw 12/16 12:37 Order name: PT-INR; Complete Time: 14:29 iw 12/16 12:37 Order name: Troponin (emerg Dept Use Only); Complete Time: 14:29 iw 12/16 12:37 Order name: XRAY Chest (1 view); Complete Time: 14:29 iw 12/16 12:37 Order name: Basic Metabolic Panel; Complete Time: 14:29 EDMN 12/16 12:37 Order name: CBC with Automated Diff; Complete Time: 14:29 EDMN 12/16 12:37 Order name: Liver (Hepatic) Function; Complete Time: 14:29 EDMS 12/16 12:37 Order name: Magnesium; Complete Time: 14:29 EDMN 12/16 12:37 Order name: EKG; Complete Time: 12:40 iw 12/16 12:37 Order name: Cardiac monitoring; Complete Time: 12:45 iw 12/16 12:37 Order name: EKG - Nurse/Tech; Complete Time: 12:44 iw 12/16 12:37 Order name: IV Saline Lock; Complete Time: 12:44 iw 12/16 12:37 Order name: Labs collected and sent; Complete Time: 12:44 iw 12/16 12:37 Order name: O2 Per Protocol; Complete Time: 12:44 iw 12/16 12:37 Order name: O2 Sat Monitoring; Complete Time: 12:44 iw EC:44 Rate is 81 beats/min. Rhythm is regular, Sinus Rhythm with No ectopy. QRS [place] is kdr Normal. ND interval is normal. QRS interval is normal. QT interval is normal. Clinical impression: NSR w/ Non-specific ST/T Changes. Administered Medications: 13:40 Drug: Lopressor (metoprolol) 5 mg Route: IVP; Site: right antecubital; ld1 14:00 Follow up: Response: No adverse reaction; Blood pressure is lowered iw 14:43 Drug: Lisinopril 10 mg Route: PO; iw 14:44 Follow up: Response: No adverse reaction iw Disposition: 12/16/20 14:31 Discharged to Home. Impression: Palpitations, Hypertensive heart disease. - Condition is Stable. - Discharge Instructions: Hypertension, [id number], Palpitations, [id number]. - Prescriptions for Lisinopril 10 mg Oral Tablet - take 1 tablet by ORAL route once daily; 20 tablet. - Medication Reconciliation Form, Thank You Letter form. - Follow up: Private Physician; When: 2 - 3 days; Reason: If symptoms return, Further diagnostic work-up, Recheck today's complaints, Continuance of care, Re-evaluation by your physician. - Problem is new. - Symptoms have improved. Addendum: 01/04/2021 09:03 Addendum: CC: Fast heart rate, HPI The patient states that since last night, he has k dr felt his heart rate was fast. He has no other associated s/s and specifically denies CP or SOB. He has not been on any medications recently for BP control. ROS: 10 point ROS is negative except for palpitations. EXAM: WDWN HM NAD, Card: RRR N; S1,2, no gallops/rubs or murmurs. The patient is noted to be hypertensive. Lungs: CTAB, RR, Abd: Soft NT, BS normal, Back: no pain on palpation or ROM, Remaining exam all normal or within normal limits MDM: The patient responded will to interventions given and his BP improved remarkable. He was happy with the care provided and the plan for discharge and follow-up. Signatures: Dispatcher [employer] [facility] Nicholas Gonzalez MD MD kdr Genny Lopez RN RN iw Carmita Andrew RN RN ll1 Reshma Haas RN RN ld1 Corrections: (The following items were deleted from the chart) 12/16 13:01 12:56 URINE --ANCILLARY+[email or web address].BRZ ordered. [facility] 14:45 14:31 12/16/2020 14:31 Discharged to Home. Impression: Palpitations; Hypertensive heart iw disease. Condition is Stable. Forms are Medication Reconciliation Form, Thank You Letter, Antibiotic Education, Prescription Opioid Use. Follow up: Private Physician; When: 2 - 3 days; Reason: If symptoms return, Further diagnostic work-up, Recheck today's complaints, Continuance of care, Re-evaluation by your physician. Problem is new. Symptoms have improved. kdr
[2020-12-16 14:51] VITALS: TEMP 98.2
[2020-12-16 14:54] VITALS: O2SAT 98
[2020-12-16] MEDS ORDERED: lisinopriL 10 MG TAB ONE (14:55)
[2020-12-16 14:56] VITALS: BP 159/101
--- NOTE | 2020-12-17 07:37 | EKG ---
Test Date: 2020-12-16 Test Time: 12:40:30 Foot Drill Operator: ESTELA MEASUREMENT RESULTS: Intervals: Rate: 81 IA: 158 QRSD: 96 QT: 356 QTc: 413 [place]: P: 14 IA: 158 QRS: 38 T: 64 INTERPRETIVE STATEMENTS: Normal sinus rhythm Nonspecific T wave abnormality Abnormal ECG No previous ECG available for comparison Electronically Signed On 12-17-20 07:34:44 CDT by Jason Loera
== END 2020-12-16 14:45 | disposition home or self-care (01) ==
LOC: ER 12:01
DX: I11.9 Hypertensive heart disease without heart failure (principal)
CPT/HCPCS: 36415; 71045; 80048; 80076; 83735; 83880; 84484; 85025; 85610; 93005; 96374; 99285

== ENCOUNTER 2021-01-09 04:37 | Emergency (ER) | payer OTHER, SELFPAY ==
--- OUTSIDE RECORDS SUMMARY | 2021-01-09 04:40 | XMS REPORT | Continuity of Care Document ---
:1985 Author Organization [facility] t Address [address] [place] [address] Care Team Providers Name Role Phone Unavailable Unavailable Unavailable Problems Condition Condition Condition Status Onset Resolution Last Treating Co mments Source Name Details Category Date Date Treatment Clinician Date Carpal Carpal Diagnosis Active [facility] Right hand Right hand Diagnosis Active [facility] pain pain [facility] Left hand Left hand Diagnosis Active [facility] pain pain [facility] Carpal Carpal Diagnosis Active [facility] 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 Medications Ordered Filled Start Stop Current Ordering Indication Dosage Frequency Signature Comments Components Source Medication Medication Date Date Medication? Clinician (SIG) Name Name Carmine Lou 2018-09 2019- No Cecilio [address] [facility] 09-07 [facility] - 00:00: 00:00 [facility] 00 :00 [facility] ent Clinics Procedures This patient has no known procedures. Encounters Start End Encounter Admission Attending Care Care Encounter Source Date/Time Date/Time Type Type Clinicians Facility Department ID 2019-08-19 2019-08-19 Outpatient Anastacia Ybarra [id number] [facility] 10[facility] 10[facility] [place] Clinics 2019-07-08 2019-07-08 Outpatient Anastacia Ybarra [id number] [facility] 09:37:00 09:37[facility]00 [facility] Clinics 2019-07-08 2019-07-08 Outpatient Anastacia Ybarra [id number] [facility] 09:[facility]:00 09:00:[facility] t [facility] Results This patient has no known results.
[2021-01-09 05:30] LABS: Absolute Lymphocytes (CBC) 2.5 K/uL (0.7-4.9); Basophils % 1.3 % (0-1.3); Hematocrit 47.3 % (39.6-49.0); Lymphocytes % 35.2 % (15.3-44.8); MPV 9.9 fL (7.6-11.3); RBC Red Blood Cell Count 5.79 M/uL (4.33-5.43)
[2021-01-09] MEDS ORDERED: MORPHINE 4 MG/ML SYR ONE (05:36)
[2021-01-09] MEDS ORDERED: ONDANSETRON 4 MG/2 ML VIAL ONE (05:37)
[2021-01-09 05:43] LABS: Urine Blood Negative (Negative); Urine Glucose Negative (Negative); Urine Protein Negative (Negative); Urine Specific Gravity >=1.030 (1.005-1.030)
[2021-01-09 05:53] LABS: ALT/SGPT 102 U/L (12-78); AST/SGOT 34 U/L (15-37); Albumin 3.9 g/dL (3.4-5.0); Alkaline Phosphatase 128 U/L (45-117); BUN Blood Urea Nitrogen 15 mg/dL (7-18); Bicarbonate 26 mmol/L (21-32); Bilirubin Direct 0.1 mg/dL (0-0.2); Bilirubin Total 0.6 mg/dL (0.2-1.0); Glucose Level 101 mg/dL (74-106); Lipase 219 U/L (73-393); Potassium 3.6 mmol/L (3.5-5.1); Protein, Total 7.4 g/dL (6.4-8.2); Sodium Level 142 mmol/L (136-145); Troponin (Emerg Dept Use Only) < 0.02 ng/mL (0.0-0.045)
[2021-01-09 06:01] LABS: Barbiturates NEGATIVE (NEGATIVE); Benzodiazepines NEGATIVE (NEGATIVE); Cocaine NEGATIVE (NEGATIVE); METHAMPHETAM NEGATIVE (NEGATIVE); Methadone NEGATIVE (NEGATIVE); Opiates NEGATIVE (NEGATIVE); Phencyclidine NEGATIVE (NEGATIVE); THC Cannibis NEGATIVE (NEGATIVE)
--- NOTE | 2021-01-09 09:25 | RAD REPORT ---
EXAM DESCRIPTION: CTAbdomen Pelvis W Contrast - 01/09/2021 7:54 am CLINICAL HISTORY: Abdominal pain. ABD PAIN COMPARISON: Chest For Pe Angio dated 01/09/2021 TECHNIQUE: Biphasic CT imaging of the abdomen and pelvis was performed with 100 ml non-ionic IV cont rast. All CT scans are performed using dose optimization technique as appropriate and may include automated exposure control or mA/KV adjustment according to patient size. FINDINGS: The lung bases are clear. The liver, spleen, pancreas, adrenal glands and kidneys are within normal limits. No bowel obstruction, free air, free fluid or abscess. Small fat containing umbilical hernia. The lorena endix is normal. No evidence of significant lymphadenopathy. No suspicious bony findings. IMPRESSION: No acute intra-abdominal or pelvic finding.
--- NOTE | 2021-01-09 09:26 | RAD REPORT ---
EXAM DESCRIPTION: CT - Chest For Pe Angio - 01/09/2021 7:54 am CLINICAL HISTORY: Chest pain. CHEST PAIN COMPARISON: No comparisons TECHNIQUE: CT angiogram of the pulmonary arteries was performed with MIP. All CT scans are performed using dose optimization technique as appropriate and may include automated exposure control or mA/KV adjustment according to patient size. FINDINGS: No evidence of pulmonary thromboembolism. No acute aortic finding demonstrated. The lungs are clear. No significant pericardial or pleural fluid. No concerning bony finding. IMPRESSION: No evidence of pulmonary thromboembolism. No acute lung findings.
--- NOTE | 2021-01-09 09:40 | RAD REPORT ---
EXAM DESCRIPTION: RAD - Chest Single View - 01/09/2021 5:22 am CLINICAL HISTORY: COUGH Chest pain. COMPARISON: Chest Single View dated 12/16/2020 FINDINGS: Portable technique limits examination quality. The lungs are grossly clear. The heart is normal in size. No displaced fractures. IMPRESSION: No acute intrathoracic process suspected.
--- NOTE | 2021-01-09 10:02 | ER ---
Nurse's Notes [facility] Name: Errol De Los Santos Age: 35 yrs Sex: Male : 1985 Arrival Date: 01/09/2021 Time: 04:40 Bed 17 Private MD: Diagnosis: Abdominal tenderness;Chest pain, unspecified-non cardiac;Functional dyspepsia;Obesity, unspecified Presentation: 01/09 04:58 Chief complaint: Patient states: around 2100 last night he started feeling a sharp bb chest pain with abdominal pain the pain is intermittent pt denies SOB, vomiting or diarrhea. Pt saw improvement nurse yesterday and is scheduled for an upcoming stress test also pt's younger brother 11/12/20 of an PR. Coronavirus screen: At this time, the client does not indicate any symptoms associated with coronavirus-19. Ebola Screen: No symptoms or risks identified at this time. Initial Sepsis Screen: Does the patient meet any 2 criteria? No. Patient's initial sepsis screen is negative. Does the patient have a suspected source of infection? No. Patient's initial sepsis screen is negative. Risk Assessment: Do you want to hurt yourself or someone else? Patient reports no desire to harm self or others. Onset of symptoms was January 08, 2021. 04:58 Method Of Arrival: Ambulatory 04:58 Acuity: ALDO 3 bb Historical: - Allergies: 05:02 No Known Allergies; bb - Home Meds: 05:02 Lisinopril Oral [Active]; bb - PMHx: 05:02 Hypertension; bb - PSHx: 05:02 None; bb - Immunization history:: Adult Immunizations up to date. - Social history:: Smoking status: Patient denies any tobacco usage or history of. Patient/guardian denies using alcohol, street drugs. Screenin:03 Abuse screen: Denies threats or abuse. Denies injuries from another. Nutritional wh screening: No deficits noted. Tuberculosis screening: No symptoms or risk factors identified. Fall Risk None identified. Assessment: 05:03 General: Appears in no apparent distress. Behavior is calm, cooperative, appropriate wh for age. Pain: Complains of pain in abdomen Pain does not radiate. Pain began 2-3 days ago. Neuro: Level of Consciousness is awake, alert, obeys commands, Oriented to person, place, time, situation, Appropriate for age. Cardiovascular: Reports chest pain, since last night Heart tones S1 S2. Respiratory: Airway is patent Respiratory effort is even, unlabored, Respiratory pattern is regular, symmetrical, Breath sounds are clear bilaterally. GI: Abdomen is round non-distended, Abd is soft Reports upper abdominal pain. : No signs and/or symptoms were reported regarding the genitourinary system. EENT: No signs and/or symptoms were reported regarding the EENT system. Derm: Skin is intact, is healthy with good turgor, Skin is pink, warm \T\ dry. normal. Musculoskeletal: Circulation, motion, and sensation intact. 06:51 Reassessment: Patient appears in no apparent distress at this time. No changes from previously documented assessment. Patient and/or family updated on plan of care and expected duration. Pain level reassessed. Patient is alert, oriented x 3, equal unlabored respirations, skin warm/dry/pink. 07:10 Reassessment: RECD REPORT FROM KRISTINE CISSE. 35YO HM P/W CHEST PAIN AND EPIGASTRIC PAIN bp LAST PM. PT IN CT CURRENTLY. 07:28 Reassessment: No changes from previously documented assessment. Patient and/or family bp updated on plan of care and expected duration. Pain level reassessed. Patient is alert, oriented x 3, equal unlabored respirations, skin warm/dry/pink. PT RETURNED FROM CT. REPORT PENDING. 10:33 Reassessment: PT D/C HOME AMBULATORY, DX WITH NON-CARDIAC CP. bp Vital Signs: 04:58 BP 148 / 88; Pulse 65; Resp 22 S; Temp 97.9(O); Pulse Ox 100% on R/A; Weight 110.68 kg bb (R); Height 5 ft. 3 in. (160.02 cm) (R); Pain 7/10; 06:51 BP 129 / 89; Pulse 71; Resp 18; Pulse Ox 100% on R/A; wh 07:30 BP 131 / 90; Pulse 67; Resp 14; Pulse Ox 99% ; bp 04:58 Body Mass Index 43.22 (110.68 kg, 160.02 cm) ED Course: 04:40 Patient arrived in ED. cf2 04:44 Selwyn Fung MD is Attending Physician. mh7 05:00 Inserted saline lock: 20 gauge in right antecubital area, using aseptic technique. wh Blood collected. Patient maintains SpO2 saturation greater than 95% on room air. 05:01 Triage completed. bb 05:02 Arm band placed on Patient placed in an exam room, on a stretcher, on monitoring analyst, bb on pulse oximetry. EKG completed in triage. Results shown to MD. 05:03 Kristine Lovelace, RN is Primary Nurse. 05:05 Patient has correct armband on for positive identification. Placed in gown. Bed in low wh position. Call light in reach. Side rails up X 1. classroom monitor on. Pulse ox on. NIBP on. 05:21 Chest Single View XRAY In Process Unspecified. EDMS 07:19 Primary Nurse role handed off by Kristine Lovelace RN bp 07:19 Octaviano Wylie, TANNA is Primary Nurse. bp 07:54 CT Chest For PE Angio In Process Unspecified. EDMS 07:54 CT Abd/Pelvis - IV Contrast Only In Process Unspecified. EDMS 08:14 Attending Physician role handed off by Selwyn Fung MD ian 08:14 Yousif Calvert MD is Attending Physician. ian 10:02 Jaleel Morelos MD is Referral Physician. ian 10:03 US Abdomen Limited In Process Unspecified. EDMS 10:33 No provider procedures requiring assistance completed. IV discontinued, intact, bp bleeding controlled, No redness/swelling at site. Pressure dressing applied. Administered Medications: 05:25 Drug: morphine 4 mg {Note: RASS 0.} Route: IVP; Site: right antecubital; wh 10:43 Follow up: Response: Pain is decreased bp 05:27 Drug: Zofran (Ondansetron) 4 mg Route: IVP; Site: right antecubital; wh 10:40 Follow up: Response: No adverse reaction bp Outcome: 10:02 Discharge ordered by . ian 10:35 Discharged to bp 10:35 Condition: stable 10:35 Following a medical screening exam, the patient was provided information regarding alternative care sites and resources available per registration personnel. 10:50 Patient left the ED. bp Signatures: Dispatcher [employer] EDMS Yousif Calvert MD MD cha Ballard, Brenda, RN RN bb Habalo, Winsy, RN RN Octaviano Wylie RN RN bp Frazier, Celesta cf2 Selwyn Fung, MD mh7
--- NOTE | 2021-01-09 10:02 | EDPHYS ---
Physician Documentation [facility] Name: Errol De Los Santos Age: 35 yrs Sex: Male : 1985 Arrival Date: 01/09/2021 Time: 04:40 Bed 17 Private MD: ED Physician Yousif Calvert HPI: 01/09 05:00 This 35 yrs old Male presents to ER via Unassigned with complaints of Chest mh7 Pain, Abdominal Pain. 05:01 The patient presents with abdominal pain in the left upper quadrant. Onset: The mh7 symptoms/episode began/occurred 3 day(s) ago. The symptoms do not radiate. Associated signs and symptoms: Pertinent negatives: nausea, vomiting, and diarrhea, nausea and vomiting, anorexia, blood in stools, chest pain, constipation, diarrhea, dysuria, fever, headache, hematuria, nausea, palpitations, shortness of breath, testicular pain, vomiting, vomiting blood. The symptoms are described as intermittent, vague, waxing/waning. Modifying factors: The symptoms are alleviated by nothing, the symptoms are aggravated by nothing. Severity of pain: At its worst the pain was moderate 2 day(s) ago, in the emergency department the pain has improved moderately. 05:43 States that he has had abdominal pain for 3 days. He had an episode of sharp chest pain mh7 last night that lasted for few seconds and did not reoccur. Denies any fever, SOB, nausea, vomiting, diarrhea, or dysuria.. Historical: - Allergies: 05:02 No Known Allergies; bb - Home Meds: 05:02 Lisinopril Oral [Active]; bb - PMHx: 05:02 Hypertension; bb - PSHx: 05:02 None; bb - Immunization history:: Adult Immunizations up to date. - Social history:: Smoking status: Patient denies any tobacco usage or history of. Patient/guardian denies using alcohol, street drugs. ROS: 05:43 Constitutional: Negative for fever, chills, and weight loss, Eyes: Negative for injury, mh7 pain, redness, and discharge, ENT: Negative for injury, pain, and discharge, Neck: Negative for injury, pain, and swelling, Respiratory: Negative for shortness of breath, cough, wheezing, and pleuritic chest pain, Back: Negative for injury and pain, : Negative for injury, bleeding, discharge, and swelling, MS/Extremity: Negative for injury and deformity, Skin: Negative for injury, rash, and discoloration, Neuro: Negative for headache, weakness, numbness, tingling, and seizure, Psych: Negative for depression, anxiety, suicide ideation, homicidal ideation, and hallucinations, Allergy/Immunology: Negative for hives, rash, and allergies, Endocrine: Negative for neck swelling, polydipsia, polyuria, polyphagia, and marked weight changes, Hematologic/Lymphatic: Negative for swollen nodes, abnormal bleeding, and unusual bruising. Exam: 05:43 Constitutional: This is a well developed, well nourished patient who is awake, alert, mh7 and in no acute distress. Head/Face: Normocephalic, atraumatic. Eyes: Pupils equal round and reactive to light, extra-ocular motions intact. Lids and lashes normal. Conjunctiva and sclera are non-icteric and not injected. Cornea within normal limits. Periorbital areas with no swelling, redness, or edema. Neck: Trachea midline, no thyromegaly or masses palpated, and no cervical lymphadenopathy. Supple, full range of motion without nuchal rigidity, or vertebral point tenderness. No Meningismus. Chest/axilla: Normal chest wall appearance and motion. Nontender with no deformity. No lesions are appreciated. Cardiovascular: Regular rate and rhythm with a normal S1 and S2. No gallops, murmurs, or rubs. Normal PMI, no JVD. No pulse deficits. Respiratory: Lungs have equal breath sounds bilaterally, clear to auscultation and percussion. No rales, rhonchi or wheezes noted. No increased work of breathing, no retractions or nasal flaring. 05:43 Back: No spinal tenderness. No costovertebral tenderness. Full range of motion. Skin: Warm, dry with normal turgor. Normal color with no rashes, no lesions, and no evidence of cellulitis. MS/ Extremity: Pulses equal, no cyanosis. Neurovascular intact. Full, normal range of motion. Neuro: Awake and alert, GCS 15, oriented to person, place, time, and situation. Cranial nerves II-XII grossly intact. Motor strength 5/5 in all extremities. Sensory grossly intact. Cerebellar exam normal. Normal gait. 05:43 Abdomen/GI: Inspection: obese Bowel sounds: normal, in all quadrants, Palpation: mild abdominal tenderness, in the left upper quadrant and left lower quadrant, mass, is not appreciated, rebound tenderness, is not appreciated, voluntary guarding, is not appreciated, involuntary guarding, is not appreciated, no appreciated organomegaly, Rectal exam: the exam is deferred, because of patient request, Indicators: McBurney's point is not tender, Degroot's sign is negative, Rovsing's sign is negative, Obturator sign is negative, Psoas sign is negative, Liver: no appreciated palpable abnormalities, Hernia: not appreciated. Vital Signs: 04:58 BP 148 / 88; Pulse 65; Resp 22 S; Temp 97.9(O); Pulse Ox 100% on R/A; Weight 110.68 kg bb (R); Height 5 ft. 3 in. (160.02 cm) (R); Pain 7/10; 06:51 BP 129 / 89; Pulse 71; Resp 18; Pulse Ox 100% on R/A; wh 07:30 BP 131 / 90; Pulse 67; Resp 14; Pulse Ox 99% ; bp 04:58 Body Mass Index 43.22 (110.68 kg, 160.02 cm) bb MDM: 08:14 Patient medically screened. ian 08:40 Differential diagnosis: acute coronary syndrome, appendicitis, cholecystitis, ian Cholelithiasis, gastritis, pancreatitis, Peptic Ulcer Disease, urinary tract infection. Data reviewed: vital signs, nurses notes, lab test result(s), EKG, radiologic studies, CT scan, plain films, ultrasound. Data interpreted: engine monitor: rate is 67 beats/min, rhythm is regular, Pulse oximetry: is not applicable for this patient encounter. Test interpretation: by ED physician or midlevel provider: ECG. Counseling: I had a detailed discussion with the patient and/or guardian regarding: the historical points, exam findings, and any diagnostic results supporting the discharge/admit diagnosis, lab results, radiology results, the need for further work-up and treatment in the hospital. 01/09 05:04 Order name: Basic Metabolic Panel [facility] 01/09 05:04 Order name: CBC with Diff [facility] 01/09 05:04 Order name: Hepatic Function; Complete Time: 05:58 [facility] 01/09 05:04 Order name: Lipase; Complete Time: 05:58 [facility] 01/09 05:05 Order name: Troponin (emerg Dept Use Only); Complete Time: 05:58 7 01/09 05:05 Order name: UDS; Complete Time: 06:25 7 01/09 05:05 Order name: Chest Single View XRAY; Complete Time: 10:01 7 01/09 05:05 Order name: Basic Metabolic Panel; Complete Time: 05:58 EDMS 05 05:05 Order name: CBC with Automated Diff; Complete Time: 05:58 EDMS 01/09 05:42 Order name: Urine Dipstick-Ancillary; Complete Time: 05:58 EDMS 01/09 06:01 Order name: CT Chest For PE Angio; Complete Time: 10:01 7 01/09 06:01 Order name: CT Abd/Pelvis - IV Contrast Only; Complete Time: 10:01 [facility] 01/09 08:37 Order name: Troponin (emerg Dept Use Only): now; Complete Time: 10:01 [facility] 01/09 08:40 Order name: US Abdomen Limited [facility] 01/09 05:04 Order name: IV Saline Lock; Complete Time: 05:05 7 01/09 05:05 Order name: Labs collected and sent; Complete Time: 05:06 7 01/09 05:05 Order name: EKG - Nurse/Tech; Complete Time: 05:05 [facility] 01/09 05:05 Order name: Urine Dipstick-Ancillary (obtain specimen); Complete Time: 05:59 mh7 Administered Medications: 05:25 Drug: morphine 4 mg {Note: RASS 0.} Route: IVP; Site: right antecubital; wh 10:43 Follow up: Response: Pain is decreased bp 05:27 Drug: Zofran (Ondansetron) 4 mg Route: IVP; Site: right antecubital; wh 10:40 Follow up: Response: No adverse reaction bp Disposition: 01/09/21 10:02 Discharged to Home. Impression: Abdominal tenderness, Chest pain, unspecified - non cardiac, Functional dyspepsia, Obesity, unspecified. - Condition is Stable. - Discharge Instructions: Abdominal Pain, Adult, Nonspecific Chest Pain, Obesity, Adult, Abdominal Pain, Adult, [id number], Nonspecific Chest Pain, [id number], Aspirin and Your Heart. - Prescriptions for Bentyl 20 mg Oral Tablet - take 1 tablet by ORAL route every 6 hours As needed; 20 tablet. Pepcid 20 mg Oral Tablet - take 1 tablet by ORAL route every 12 hours for 15 days; 30 tablet. - Medication Reconciliation Form, Thank You Letter, Antibiotic Education, Prescription Opioid Use form. - Follow up: Private Physician; When: 2 - 3 days; Reason: Recheck today's complaints, Continuance of care, Re-evaluation by your physician. Follow up: Jaleel Morelos; When: 2 - 3 days; Reason: Recheck today's complaints, Re-evaluation by your physician. - Problem is new. - Symptoms have improved. Signatures: Dispatcher [employer] EDMS Yousif Calvert MD MD cha Ballard, Brenda, RN RN Kristine Bloom RN RN wh Peltier, Brian, RN RN bp Holmes, Maurice, MD MD mh7 Corrections: (The following items were deleted from the chart) 10:50 10:02 01/09/2021 10:02 Discharged to Home. Impression: Abdominal tenderness; Chest bp pain, unspecified - non cardiac; Functional dyspepsia; Obesity, unspecified. Condition is Stable. Discharge Instructions: Abdominal Pain, Adult, Nonspecific Chest Pain, Obesity, Adult, Abdominal Pain, Adult, [id number], Nonspecific Chest Pain, [id number], Aspirin and Your Heart. Prescriptions for Bentyl 20 mg Oral Tablet - take 1 tablet by ORAL route every 6 hours As needed; 20 tablet, Pepcid 20 mg Oral Tablet - take 1 tablet by ORAL route every 12 hours for 15 days; 30 tablet. and Forms are Medication Reconciliation Form, Thank You Letter, Antibiotic Education, Prescription Opioid Use. Follow up: Private Physician; When: 2 - 3 days; Reason: Recheck today's complaints, Continuance of care, Re-evaluation by your physician. Follow up: Jaleel Morelos; When: 2 - 3 days; Reason: Recheck today's complaints, Re-evaluation by your physician. Problem is new. Symptoms have improved. ian
--- NOTE | 2021-01-09 10:31 | RAD REPORT ---
EXAM DESCRIPTION: US - Abdomen Exam Limited - 01/09/2021 10:03 am CLINICAL HISTORY: ABD PAIN COMPARISON: Abdomen Pelvis W Contrast dated 01/09/2021 FINDINGS: The gallbladder demonstrates no gallstones. No pericholecystic fluid or gallbladder wall t hickening. The common bile duct is normal measuring 4 mm. The liver demonstrates mild fatty liver. IMPRESSION: Negative gallbladder/biliary tree findings. Fatty liver.
[2021-01-09 10:57] VITALS: TEMP 97.9
[2021-01-09 11:01] VITALS: BP 131/90; O2SAT 99
== END 2021-01-09 10:50 | disposition home or self-care (01) ==
LOC: ER 04:37
DX: R07.89 Other chest pain (principal); R10.819 Abdominal tenderness, unspecified site; K30 Functional dyspepsia; E66.9 Obesity, unspecified; Z68.41 Body mass index [BMI] 40.0-44.9, adult; I10 Essential (primary) hypertension
CPT/HCPCS: 36415; 71045; 71275; 74177; 76705; 80048; 80076; 80307; 81003; 83690; 84484; 85025; 93005; 96374; 96375; 99285; J2405; Q9967

== ENCOUNTER 2021-08-11 09:01 | Emergency (ER) | payer OTHER ==
--- OUTSIDE RECORDS SUMMARY | 2021-08-11 09:03 | XMS REPORT | Continuity of Care Document ---
:1985 Author Organization [facility] t Address [address] [place] [address] Care Team Providers Name Role Phone Unavailable Unavailable Unavailable Problems Condition Condition Condition Status Onset Resolution Last Treating Co mments Source Name Details Category Date Date Treatment Clinician Date Carpal Carpal Diagnosis Active [facility] tunnel tunnel [facility] Right hand Right hand Diagnosis Active [facility] Left hand Left hand Diagnosis Active [facility] Carpal Carpal Diagnosis Active [facility] tunnel tunnel [facility] - [facility] syndrome [facility] right of right [facility] Allergies, Adverse Reactions, Alerts This patient has no known allergies or adverse reactions. Medications Ordered Filled Start Stop Current Ordering Indication Dosage Frequency Signature Comments Components Source Medication Medication Date Date Medication? Clinician (SIG) Name Name Carmine Lou 2018-09 2019- No Cecilio [address] [facility] 09-07 [facility] 00[facility]00 [facility]00 [facility] Procedures This patient has no known procedures. Encounters Start End Encounter Admission Attending Care Care Encounter Source Date/Time Date/Time Type Type Clinicians Facility Department ID 2019-08-19 2019-08-19 Outpatient Anastacia Ybarra [id number] [facility] 10[facility] 2019-07-08 2019-07-08 Outpatient Anastacia Ybarra [id number] [facility] 09:37[facility]00 09[facility]37[facility]00 [facility] Clinics 2019-07-08 2019-07-08 Outpatient Anastacia Ybarra [id number] [facility] 09:[facility] 09[facility] Results This patient has no known results.
--- NOTE | 2021-08-11 11:35 | RAD REPORT ---
EXAM DESCRIPTION: US - UPPER EXTREMITY VENOUS UNILATE - 08/11/2021 10:37 am CLINICAL HISTORY: Right upper extremity swelling COMPARISON: None. FINDINGS: The right internal jugular, subclavian, brachial, axillary, cephalic, and basilic veins de monstrate phasic signal. The veins are generally compressible. Doppler demonstrates good flow IMPRESSION: No evidence of thrombus involving the right upper extremity
--- NOTE | 2021-08-11 12:12 | ER ---
Nurse's Notes [facility] Name: Errol De Los Santos Age: 36 yrs Sex: Male : 1985 Arrival Date: 08/11/2021 Time: 09:06 Bed 16 Private MD: Diagnosis: Radiculopathy, site unspecified Presentation: 08/11 09:19 Chief complaint: Patient states: numbness right shoulder to hand, swelling in hand. x1 jh5 week. happened a month ago, followed up cardiology without explaination. denies any other complications apart from arm tingling. Coronavirus screen: Vaccine status: Patient reports receiving the 2nd dose of the covid vaccine. Client denies travel out of the [place] in the last 14 days. Ebola Screen: Patient negative for fever greater than or equal to 101.5 degrees Fahrenheit, and additional compatible Ebola Virus Disease symptoms Patient denies exposure to infectious person. Patient denies travel to an Ebola-affected area in the 21 days before illness onset. No symptoms or risks identified at this time. Initial Sepsis Screen: Does the patient meet any 2 criteria? No. Patient's initial sepsis screen is negative. Does the patient have a suspected source of infection? No. Patient's initial sepsis screen is negative. Risk Assessment: Do you want to hurt yourself or someone else? Patient reports no desire to harm self or others. Onset of symptoms was August 05, 2021. 09:19 Method Of Arrival: Ambulatory [facility] 09:19 Acuity: ALDO 3 5 Triage Assessment: 09:21 General: Appears in no apparent distress. Behavior is calm, cooperative, appropriate [facility] for age. Pain: Denies pain. Historical: - Home Meds: 09:21 lisinopril Oral [Active]; jh5 - PMHx: 09:21 Hypertension; 5 - Immunization history:: Adult Immunizations up to date. - Social history:: Smoking status: Patient denies any tobacco usage or history of. Screenin:03 Abuse screen: Denies threats or abuse. Nutritional screening: No deficits noted. jd3 Tuberculosis screening: No symptoms or risk factors identified. Fall Risk Ambulatory Aid- None/Bed Rest/Nurse Assist (0 pts). Gait- Normal/Bed Rest/Wheelchair (0 pts) Mental Status- Oriented to own ability (0 pts). Total Rodriguez Fall Scale indicates No Risk (0-24 pts). Assessment: 10:11 General: Appears in no apparent distress. comfortable, Behavior is calm, cooperative, jd3 appropriate for age. Pain: Complains of pain in right arm Quality of pain is described as numb. Neuro: Level of Consciousness is awake, alert, obeys commands, Oriented to person, place, time, situation, Reports numbness in right arm since 1 week. Cardiovascular: Capillary refill < 3 seconds Patient's skin is warm and dry. Rhythm is regular. Respiratory: Airway is patent Respiratory effort is even, unlabored, Respiratory pattern is regular, symmetrical, Denies cough, shortness of breath. GI: No signs and/or symptoms were reported involving the gastrointestinal system. : No signs and/or symptoms were reported regarding the genitourinary system. EENT: No signs and/or symptoms were reported regarding the EENT system. Derm: Skin is intact, Skin is dry, Skin is normal, Skin temperature is warm. Musculoskeletal: Circulation, motion, and sensation intact. Range of motion: intact in all extremities. 10:57 Reassessment: No changes from previously documented assessment. Patient and/or family jd3 updated on plan of care and expected duration. Pain level reassessed. Patient is alert, oriented x 3, equal unlabored respirations, skin warm/dry/pink. Patient denies pain at this time. 12:36 Reassessment: Patient appears in no apparent distress at this time. Patient and/or jd3 family updated on plan of care and expected duration. Pain level reassessed. Patient is alert, oriented x 3, equal unlabored respirations, skin warm/dry/pink. provider at bedside discussing results. pt with even and steady gait upon discharge. Vital Signs: 09:19 BP 140 / 98; Pulse 63; Resp 16; Temp 98.4; Pulse Ox 100% ; Weight 114.31 kg; Height 5 5 ft. 4 in. (162.56 cm); 12:37 BP 134 / 84; Pulse 64; Resp 17 S; Pulse Ox 100% on R/A; jd3 09:19 Body Mass Index 43.26 (114.31 kg, 162.56 cm) [facility] ED Course: 09:06 Patient arrived in ED. [facility] 09:21 Triage completed. [facility] 09:21 Arm band placed on right wrist. [facility] 09:23 Gayatri Cornell MD is Attending Physician. sp3 09:33 EKG done, by ED staff, reviewed by Gayatri Cornell MD. gd 10:03 Venkatesh Wan RN is Primary Nurse. jd3 10:03 Patient has correct armband on for positive identification. Bed in low position. Call jd3 light in reach. Side rails up X 1. Adult w/ patient. Pulse ox on. NIBP on. 10:37 UPPER EXTREMITY VENOUS UNILATE In Process Unspecified. EDMS 12:11 Armin Monteiro MD is Referral Physician. sp3 12:36 No provider procedures requiring assistance completed. Patient did not have IV access jd3 during this emergency room visit. Administered Medications: No medications were administered Outcome: 12:12 Discharge ordered by MD. sp3 12:37 Discharged to home ambulatory, with family. jd3 12:37 Condition: stable 12:37 Discharge instructions given to patient, Instructed on discharge instructions, follow up and referral plans. Demonstrated understanding of instructions, follow-up care. 12:37 Patient left the ED. jd3 Signatures: Dispatcher [employer] EDNH Venkatesh Wan, RN RN Gayatri Troncoso MD MD sp3 Wilbert Chan Jessica RN RN 5 Kristie Alston 5 Corrections: (The following items were deleted from the chart) 10:57 10:11 Pain: Complains of pain in left arm Quality of pain is described as numb, jd3 jd3 10:57 10:11 Neuro: Level of Consciousness is awake, alert, obeys commands, Oriented to jd3 person, place, time, situation, Reports numbness in left arm since 1 week jd3
--- NOTE | 2021-08-11 12:12 | EDPHYS ---
Physician Documentation [facility] Name: Errol De Los Santos Age: 36 yrs Sex: Male : 1985 Arrival Date: 08/11/2021 Time: 09:06 Bed 16 Private MD: ED Physician Gayatri Cornell HPI: 08/11 09:41 This 36 yrs old Male presents to ER via Ambulatory with complaints of Numbness sp3 Of Arm. 09:41 36-year-old male right arm numbness and mild swelling for 2 weeks. Patient has seen a sp3 molder inflated ball recently secondary to his brother passing away of an acute heart attack and therefore was being seen for "to make sure everything was okay". So far he has had a negative work-up by his PCP and molder inflated ball and he was last seen several weeks ago. Over the last 2 weeks he has developed this numbness and swelling and has not followed up with them as of yet. He likes to come to the ED today to "get it sorted". 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 Patient denies any other symptoms including headache, neck pain, chest pain, back pain, shortness of breath, URI symptoms, abdominal pain, nausea, vomiting, diarrhea, extremity pain, syncope, near syncope, changes in hearing or vision, or any other ROS at this time.. Historical: - Home Meds: 09:21 lisinopril Oral [Active]; 5 - PMHx: 09:21 Hypertension; [facility] - Immunization history:: Adult Immunizations up to date. - Social history:: Smoking status: Patient denies any tobacco usage or history of. ROS: 09:43 Constitutional: Negative for fever, chills, and weight loss, Eyes: Negative for injury, sp3 pain, redness, and discharge, ENT: Negative for injury, pain, and discharge, Neck: Negative for injury, pain, and swelling, Cardiovascular: Negative for chest pain, palpitations, and edema, Respiratory: Negative for shortness of breath, cough, wheezing, and pleuritic chest pain, Abdomen/GI: Negative for abdominal pain, nausea, vomiting, diarrhea, and constipation, Back: Negative for injury and pain, Skin: Negative for injury, rash, and discoloration, Neuro: Negative for headache, weakness, numbness, tingling, and seizure, other than what is described in the HPI for his right upper extremity. Psych: Negative for depression, anxiety, suicide ideation, homicidal ideation, and hallucinations, Allergy/Immunology: Negative for hives, rash, and allergies, Endocrine: Negative for neck swelling, polydipsia, polyuria, polyphagia, and marked weight changes, Hematologic/Lymphatic: Negative for swollen nodes, abnormal bleeding, and unusual bruising. 09:43 All other systems are negative. Exam: 09:43 Constitutional: This is a well developed, well nourished patient who is awake, alert, sp3 and in no acute distress. Head/Face: Normocephalic, atraumatic. Eyes: Pupils equal round and reactive to light, extra-ocular motions intact. Lids and lashes normal. Conjunctiva and sclera are non-icteric and not injected. Cornea within normal limits. Periorbital areas with no swelling, redness, or edema. ENT: Nares patent. No nasal discharge, no septal abnormalities noted. External auditory canals are clear. Oropharynx with no redness, swelling, or masses, exudates, or evidence of obstruction, uvula midline. Mucous membranes moist. Neck: Trachea midline, no thyromegaly or masses palpated, and no cervical lymphadenopathy. Supple, full range of motion without nuchal rigidity, or vertebral point tenderness. No Meningismus. Chest/axilla: Normal chest wall appearance and motion. Nontender with no deformity. No lesions are appreciated. Cardiovascular: Regular rate and rhythm with a normal S1 and S2. No gallops, murmurs, or rubs. Normal PMI, no JVD. No pulse deficits. Respiratory: Lungs have equal breath sounds bilaterally, clear to auscultation and percussion. No rales, rhonchi or wheezes noted. No increased work of breathing, no retractions or nasal flaring. Abdomen/GI: Soft, non-tender, with normal bowel sounds. No distension or tympany. No guarding or rebound. No evidence of tenderness throughout. Back: No spinal tenderness. No costovertebral tenderness. Full range of motion. Skin: Warm, dry with normal turgor. Normal color with no rashes, no lesions, and no evidence of cellulitis. Psych: Awake, alert, with orientation to person, place and time. Behavior, mood, and affect are within normal limits. 09:43 Musculoskeletal/extremity: Right upper extremity edema nonpitting edema from the hand proximally to mid humerus. There are subjective sensory tingling deficits along the ulnar nerve pattern but hard to fully specify. No motor weakness. Remainder of body's neurological exam is normal including cranial nerves.. 09:48 ECG was reviewed by the Attending Physician. EKG demonstrates normal sinus rhythm at 61 sp3 bpm with normal intervals, normal QRS, normal axis, normal ST/T-segments without any evidence of ischemia. Vital Signs: 09:19 BP 140 / 98; Pulse 63; Resp 16; Temp 98.4; Pulse Ox 100% ; Weight 114.31 kg; Height 5 jh5 ft. 4 in. (162.56 cm); 12:37 BP 134 / 84; Pulse 64; Resp 17 S; Pulse Ox 100% on R/A; jd3 09:19 Body Mass Index 43.26 (114.31 kg, 162.56 cm) 5 MDM: 09:25 Patient medically screened. sp3 09:46 Data reviewed: vital signs, nurses notes. ED course: 36-year-old male who presents with sp3 right upper extremity numbness and swelling. Will obtain an ultrasound to rule out DVT and otherwise have patient follow-up with neurology for further work-up. I do not believe patient is having ACS, CVA, vascular compromise including TAD, or any other critical findings at this time.. 12:10 ED course: Ultrasound demonstrates no DVT or clotting issue. Will discharge patient sp3 home to neurology follow-up.. 08/11 10:02 Order name: UPPER EXTREMITY VENOUS UNILATE; Complete Time: 12:06 EDMS Administered Medications: No medications were administered Disposition Summary: 08/11/21 12:12 Discharge Ordered Location: Home sp3 Condition: Stable sp3 Diagnosis - Radiculopathy, site unspecified sp3 Followup: sp3 - With: Armin Monteiro MD - When: Upon discharge from the Emergency Department - Reason: Recheck today's complaints Discharge Instructions: - Discharge Summary Sheet sp3 - Radicular Pain sp3 Forms: - Medication Reconciliation Form sp3 - Thank You Letter sp3 - Antibiotic Education sp3 - Work release form jd3 - Prescription Opioid Use sp3 Signatures: Dispatcher [employer] EDMS Gayatri Cornell MD MD sp3 Camryn Hiutron RN RN jh5 Corrections: (The following items were deleted from the chart) : 09:35 Extremity Venous [employer]+[id number] ordered. EDMS EDMS
[2021-08-11 13:03] VITALS: TEMP 98.4; O2SAT 100
[2021-08-11 13:06] VITALS: BP 134/84
== END 2021-08-11 12:37 | disposition home or self-care (01) ==
LOC: ER 09:01
DX: M54.10 Radiculopathy, site unspecified (principal); I10 Essential (primary) hypertension
CPT/HCPCS: 93005; 93971; 99283

== ENCOUNTER 2022-10-11 09:24 | Emergency (ER) | payer SELFPAY ==
--- OUTSIDE RECORDS SUMMARY | 2022-10-11 09:30 | XMS REPORT | Continuity of Care Document ---
:1985 Author Organization [facility] t Address 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 Medications Ordered Filled Start Stop Current Ordering Indication Dosage Frequency Signature Comments Components Source Medication Medication Date Date Medication? Clinician (SIG) Name Name Carmine Lou 2018-09 2019- No Cecilio 1 tablet Com 09-07 [facility] 00:00: 00:00 - [facility] 00 :00 [facility] Procedures This patient has no known procedures. Encounters Start End Encounter Admission Attending Care Care Encounter Source Date/Time Date/Time Type Type Clinicians Facility Department ID 2021-09-29 Outpatient [facility] [id number] Common 13:55:25 [id number] [facility] 2019-08-19 2019-08-19 [id number] Common 10:00:00 10:00:00 [facility] 2019-07-08 2019-07-08 [id number] Common 09:37:00 09:37:00 [facility] 2019-07-08 2019-07-08 Outpatient [facility] [id number] Common 09:00:00 09:00:00 [facility] Results This patient has no known results.
[2022-10-11 10:33] LABS: Absolute Lymphocytes (CBC) 1.7 K/uL (0.7-4.9); Hematocrit 48.4 % (39.6-49.0); Lymphocytes % 29.7 % (15.3-44.8); MCV 82.8 fL (80-100); MPV 8.8 fL (7.6-11.3); RBC Red Blood Cell Count 5.84 M/uL (4.33-5.43)
--- NOTE | 2022-10-11 10:42 | RAD REPORT ---
EXAM DESCRIPTION: RAD - Chest Single View - 10/11/2022 10:25 am CLINICAL HISTORY: CHEST PAIN COMPARISON: Portable 01/09/2021 TECHNIQUE: AP portable chest image was obtained 10/11/2022 10:25 am . FINDINGS: No peripheral mass or consolidation. Large body habitus and under penetrated portable tech nique accentuate chest findings. Interstitial pattern is not grossly different but could potentially mask a minimal infiltrate or edema process. Heart size is normal range in similar to comparison. No abnormal vascular engorgement. No measurable pleural effusion and no pneumothorax. No acute bony abnormality seen. No acute aortic findings suspe cted. IMPRESSION: No acute focal lung parenchymal process identified. Baseline interstitial pattern could potentially mask a minimal interstitial edema or infiltrate.
[2022-10-11 10:44] LABS: Magnesium 2.2 mg/dL (1.6-2.4); Potassium 3.8 mmol/L (3.5-5.1); Troponin High Sensitivity 10.2 pg/mL (<58.9)
--- NOTE | 2022-10-11 13:05 | ER ---
Nurse's Notes [facility] Name: Errol De Los Santos Age: 37 yrs Sex: Male : 1985 Arrival Date: 10/11/2022 Time: 09:28 Bed 19 Private MD: Diagnosis: Chest pain, unspecified;Essential (primary) hypertension Presentation: 10/11 10:27 Chief complaint: Patient states: C/O Chest pain since this morning. Coronavirus screen: ld1 At this time, the client does not indicate any symptoms associated with coronavirus-19. Ebola Screen: No symptoms or risks identified at this time. Initial Sepsis Screen: Does the patient meet any 2 criteria? No. Patient's initial sepsis screen is negative. Does the patient have a suspected source of infection? No. Patient's initial sepsis screen is negative. Risk Assessment: Do you want to hurt yourself or someone else? Patient reports no desire to harm self or others. Onset of symptoms was October 11, 2022. 10:27 Method Of Arrival: Ambulatory ld1 10:27 Acuity: ALDO 3 ld1 Triage Assessment: 10:28 General: Appears in no apparent distress. uncomfortable, Behavior is calm, cooperative, ld1 appropriate for age. Pain: Complains of pain in chest Pain does not radiate. Pain currently is 8 out of 10 on a pain scale. Quality of pain is described as throbbing. EENT: No signs and/or symptoms were reported regarding the EENT system. Neuro: Level of Consciousness is awake, alert, obeys commands, Oriented to person, place, time, situation. Cardiovascular: Capillary refill < 3 seconds Patient's skin is warm and dry. Respiratory: Airway is patent Respiratory effort is even, unlabored. GI: Abdomen is round non-distended. : No signs and/or symptoms were reported regarding the genitourinary system. Derm: No signs and/or symptoms reported regarding the dermatologic system. Musculoskeletal: No signs and/or symptoms reported regarding the musculoskeletal system. Historical: - Allergies: 10: No Known Allergies; ld1 - PMHx: 10:28 Hypertension; ld1 - Immunization history:: Adult Immunizations up to date, Client reports receiving the 2nd dose of the Covid vaccine. - Social history:: Smoking status: Patient denies any tobacco usage or history of. Patient/guardian denies using alcohol. Screenin:22 [facility] ED Fall Risk Assessment (Adult) History of falling in the last 3 months, ap3 including since admission No falls in past 3 months (0 pts). Abuse screen: Denies threats or abuse. Nutritional screening: No deficits noted. Tuberculosis screening: No symptoms or risk factors identified. Assessment: 10:18 General: Appears comfortable, Behavior is calm, cooperative. Pain: Complains of pain in ap3 anterior aspect of left upper chest Pain does not radiate. Pain began gradually, Is intermittent. Neuro: Level of Consciousness is awake, alert, obeys commands, Oriented to person, place, time, situation. Cardiovascular: Reports chest pain, Patient's skin is warm and dry. Respiratory: Airway is patent Respiratory effort is even, unlabored, Respiratory pattern is regular, symmetrical. 12:02 Reassessment: Patient and/or family updated on plan of care and expected duration. Pain ap3 level reassessed. Patient is alert, oriented x 3, equal unlabored respirations, skin warm/dry/pink. 12:42 Reassessment: Patient and/or family updated on plan of care and expected duration. Pain ap3 level reassessed. Patient is alert, oriented x 3, equal unlabored respirations, skin warm/dry/pink. Vital Signs: 10:21 BP 149 / 98; Pulse 66; Resp 17; Temp 98.6(O); Pulse Ox 95% on R/A; Weight 120.2 kg; ap3 Height 5 ft. 4 in. (162.56 cm); 11:01 BP 159 / 95; Pulse 64; Pulse Ox 97% on R/A; ap3 12:03 BP 142 / 93; Pulse 64; Pulse Ox 97% on R/A; ap3 12:42 BP 136 / 94; Pulse 66; Pulse Ox 97% on R/A; ap3 10:21 Body Mass Index 45.49 (120.20 kg, 162.56 cm) ap3 ED Course: 09:28 Patient arrived in ED. mr 09:34 Dre Handley DO is Attending Physician. ms3 09:57 Carlotta Prescott, TANNA is Primary Nurse. ap3 10:18 Inserted saline lock: 20 gauge in right antecubital area, using aseptic technique. ap3 Blood collected. 10:23 Patient maintains SpO2 saturation greater than 95% on room air. ap3 10:23 Patient has correct armband on for positive identification. Placed in gown. Bed in low ap3 position. Call light in reach. Side rails up X2. Adult w/ patient. hospital monitor on. Pulse ox on. NIBP on. Door closed. Noise minimized. 10:23 Arm band placed on right wrist. ap3 10:27 XRAY Chest (1 view) In Process Unspecified. EDMS 10:28 Triage completed. ld1 13:09 No provider procedures requiring assistance completed. ap3 13:15 IV discontinued, intact, bleeding controlled, No redness/swelling at site. Pressure ap3 dressing applied. Administered Medications: No medications were administered Medication: 10:23 VIS not applicable for this client. ap3 Outcome: 13:04 Discharge ordered by . ms3 13:15 Discharged to home ambulatory. ap3 13:15 Condition: good 13:15 Discharge instructions given to patient, Instructed on discharge instructions, follow up and referral plans. Demonstrated understanding of instructions, follow-up care. 13:15 Patient left the ED. ap3 Signatures: Dispatcher [employer] Ami Larios mr TawnyasadiaCarlotta, RN RN ap3 Dre Handley DO DO ms3 Reshma Haas, RN RN ld1
--- NOTE | 2022-10-11 13:05 | EDPHYS ---
Physician Documentation [facility] Name: Errol De Los Santos Age: 37 yrs Sex: Male : 1985 Arrival Date: 10/11/2022 Time: 09:28 Bed 19 Private MD: ED Physician Dre Handley HPI: 10/11 09:49 This 37 yrs old Male presents to ER via Unassigned with complaints of Chest ms3 Pain. 09:49 37-year-old male with past medical history of hypertension presents for chest pain that ms3 began at 7 AM. Patient states the pain is sharp and located on the left side of his chest. Patient denies radiation of the pain. Patient states the pain is intermittent lasting approximately 1 minute. Patient denies nausea, vomiting, shortness of breath, diaphoresis. Historical: - Allergies: 10:28 No Known Allergies; ld1 - PMHx: 10:28 Hypertension; ld1 - Immunization history:: Adult Immunizations up to date, Client reports receiving the 2nd dose of the Covid vaccine. - Social history:: Smoking status: Patient denies any tobacco usage or history of. Patient/guardian denies using alcohol. ROS: 09:49 Constitutional: Negative for fever, and chills. Neck: Negative for injury, pain, and ms3 swelling. 09:49 Respiratory: Negative for shortness of breath, cough, wheezing, and pleuritic chest pain, Abdomen/GI: Negative for abdominal pain, nausea, vomiting, diarrhea, and constipation, MS/Extremity: Negative for injury and deformity, Skin: Negative for injury, rash, and discoloration. 09:49 Cardiovascular: Positive for chest pain. 09:49 All other systems are negative. Exam: 09:49 Constitutional: This is a well developed, well nourished patient who is awake, alert, ms3 and in no acute distress. Head/Face: Normocephalic, atraumatic. Neck: Trachea midline, no cervical lymphadenopathy. Supple, full range of motion without nuchal rigidity, or vertebral point tenderness. No Meningismus. Chest/axilla: Normal chest wall appearance and motion. Nontender with no deformity. Cardiovascular: Regular rate and rhythm with a normal S1 and S2. No gallops, murmurs, or rubs. Normal PMI, no JVD. No pulse deficits. Abdomen/GI: Soft, non-tender, with normal bowel sounds. No distension or tympany. No guarding or rebound. No evidence of tenderness throughout. Skin: Warm, dry with normal turgor. Normal color with no rashes, no lesions, and no evidence of cellulitis. MS/ Extremity: Pulses equal, no cyanosis. Neurovascular intact. Full, normal range of motion. 11:25 ECG was reviewed by the Attending Physician. ms3 Vital Signs: 10:21 BP 149 / 98; Pulse 66; Resp 17; Temp 98.6(O); Pulse Ox 95% on R/A; Weight 120.2 kg; ap3 Height 5 ft. 4 in. (162.56 cm); 11:01 BP 159 / 95; Pulse 64; Pulse Ox 97% on R/A; ap3 12:03 BP 142 / 93; Pulse 64; Pulse Ox 97% on R/A; ap3 12:42 BP 136 / 94; Pulse 66; Pulse Ox 97% on R/A; ap3 10:21 Body Mass Index 45.49 (120.20 kg, 162.56 cm) ap3 MDM: 09:53 Differential diagnosis: abnormal EKG, acute myocardial infarction, chest wall pain. ms3 10:07 Patient medically screened. ms3 13:06 HEART Score: History: Slightly Suspicious (0), ECG: Normal (0), Age: < or = 45 years ms3 (0), Risk Factors: 1 or 2 risk factors (1), Troponin: < or = 1 x Normal Limit (0), Total Score = 1. Data reviewed: vital signs, nurses notes, lab test result(s), EKG, radiologic studies, and as a result, I will discharge patient. Consideration of Admission/Observation Escalation of care including admission/observation considered. Patient with downtrending troponin while in the emergency department. Heart score 1.. I considered the following discharge prescriptions or medication management in the emergency department Medications were administered in the Emergency Department. See MAR. Independent interpretation of the following test(s) in the Emergency Department EKG: See my EKG interpretation above dialysis biomed technician: rate is 68 beats/min, Rhythm is normal sinus rhythm, regular, with no ectopy, Interpretation: normal rate, normal rhythm. Care significantly affected by the following chronic conditions: Hypertension. Scoring Tools. Counseling: I had a detailed discussion with the patient and/or guardian regarding: the historical points, exam findings, and any diagnostic results supporting the discharge/admit diagnosis, lab results, radiology results, the need for outpatient follow up, to return to the emergency department if symptoms worsen or persist or if there are any questions or concerns that arise at home. Special discussion: I discussed with the patient/guardian in detail that at this point there is no indication for admission to the hospital. It is understood, however, that if the symptoms persist or worsen the patient needs to return immediately for re-evaluation. ED course: Discussed labs, chest x-ray, EKG with patient and his family. 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 Patient or stands and agrees with plan. All questions were answered. Return precautions discussed include nausea, vomiting, shortness of breath, lightheadedness, syncope, worsening symptoms, or any other concerns. On reevaluation patient symptoms have improved, patient is in no apparent distress, nontoxic, speaking full sentences.. 10/11 09:46 Order name: Basic Metabolic Panel; Complete Time: 10:48 ms3 10/11 09:46 Order name: CBC with Diff; Complete Time: 10:48 ms3 10/11 09:46 Order name: Magnesium; Complete Time: 10:48 ms3 10/11 09:46 Order name: Troponin HS; Complete Time: 10:48 ms3 10/11 09:46 Order name: XRAY Chest (1 view); Complete Time: 10:48 ms3 10/11 12:07 Order name: Troponin High Sensitivity; Complete Time: 12:58 ap3 10/11 09:46 Order name: EKG; Complete Time: 09:46 ms3 10/11 09:46 Order name: Cardiac monitoring; Complete Time: 10:08 ms3 10/11 09:46 Order name: EKG - Nurse/Tech; Complete Time: 10:08 ms3 10/11 09:46 Order name: IV Saline Lock; Complete Time: 10:18 ms3 10/11 09:46 Order name: Labs collected and sent; Complete Time: 10:18 ms3 10/11 09:46 Order name: O2 Per Protocol; Complete Time: 10:08 ms3 10/11 09:46 Order name: O2 Sat Monitoring; Complete Time: 10:08 ms3 02/07 10:50 Order name: Repeat Cardiac Enzymes at: Trop at 1221; Complete Time: 12:26 ms3 EC:25 Rate is 66 beats/min. Rhythm is regular. QRS Kennard is Normal. FL interval is normal. QRS ms3 interval is normal. Clinical impression: Normal ECG. Interpreted by me. Reviewed by me. Administered Medications: No medications were administered Disposition Summary: 10/11/22 13:04 Discharge Ordered Location: Home ms3 Condition: Stable ms3 Diagnosis - Chest pain, unspecified ms3 - Essential (primary) hypertension ms3 Followup: ms3 - With: Private Physician - When: 1 - 2 days - Reason: Recheck today's complaints Discharge Instructions: - Discharge Summary Sheet ms3 - Nonspecific Chest Pain, Adult ms3 - Hypertension, Adult ms3 Forms: - Medication Reconciliation Form ms3 - Thank You Letter ms3 - Antibiotic Education ms3 - Prescription Opioid Use ms3 Signatures: Dispatcher [employer] EDDre Shea DO DO ms3 Reshma Haas, RN RN ld1
[2022-10-11 13:23] VITALS: TEMP 98.6
[2022-10-11 13:24] VITALS: O2SAT 97
[2022-10-11 13:26] VITALS: BP 136/94
== END 2022-10-11 13:15 | disposition home or self-care (01) ==
LOC: ER 09:24
DX: R07.89 Other chest pain (principal); I10 Essential (primary) hypertension
CPT/HCPCS: 36415; 71045; 80048; 83735; 84484; 85025; 93005

== ENCOUNTER 2023-01-23 09:15 | Emergency (ER) | payer OTHER, SELFPAY ==
--- OUTSIDE RECORDS SUMMARY | 2023-01-23 09:19 | XMS REPORT | Continuity of Care Document ---
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 Medications Ordered Filled Start Stop Current Ordering Indication Dosage Frequency Signature Comments Components Source Medication Medication Date Date Medication? Clinician (SIG) Name Name Carmine Lou 2018-09 2019- No Cecilio 1 tablet Com 09-07 [facility] 00:00: 00:00 - [facility] 00 :00 [facility] Procedures This patient has no known procedures. Encounters Start End Encounter Admission Attending Care Care Encounter Source Date/Time Date/Time Type Type Clinicians Facility Department ID 2021-09-[address] [facility] [id number] Common 13:55:25 [id number] [facility] 2019-08-19 2019-08-19 [facility] [id number] Common 10:00:00 10:00:00 [facility] 2019-07-08 2019-07-08 [facility] [id number] Common 09:37:00 09:37:00 t [facility] 2019-07-08 2019-07-08 Outpatient [facility] [id number] Common 09:00:00 09:00:00 t [facility] Results This patient has no known results.
[2023-01-23] MEDS ORDERED: KETOROLAC 30 MG/ML INJ ONE (09:49)
[2023-01-23 10:04] LABS: Absolute Lymphocytes (CBC) 2.1 K/uL (0.7-4.9); Lymphocytes % 34.5 % (15.3-44.8); MCV 82.8 fL (80-100); MPV 9.1 fL (7.6-11.3)
[2023-01-23 10:19] LABS: Albumin 3.7 g/dL (3.4-5.0); Bilirubin Total 0.5 mg/dL (0.2-1.0); Potassium 3.6 mEq/L (3.5-5.1); Protein, Total 7.3 g/dL (6.4-8.2); Troponin High Sensitivity 8.5 pg/mL (<58.9)
--- NOTE | 2023-01-23 10:51 | RAD REPORT ---
EXAM DESCRIPTION: RADChest Single View01/23/2023 10:35 am CLINICAL HISTORY: CHEST PAIN COMPARISON: Chest Single View dated 10/11/2022; Chest Single View dated 01/09/2021; Chest Single View da cayetano 12/16/2020 TECHNIQUE: Portable AP view of the chest. FINDINGS: Decreased inspiratory effort somewhat limits evaluation. The lungs are clear. No pneumotho rax or effusion. The cardiomediastinal contours are unremarkable. IMPRESSION: No acute cardiopulmonary process.
--- NOTE | 2023-01-23 11:18 | EDPHYS ---
Physician Documentation [facility] Name: Errol De Los Santos Age: 37 yrs Sex: Male : 1985 Arrival Date: 01/23/2023 Time: 09:15 Bed 7 Private MD: ED Physician Piero Verdugo HPI: 01/23 09:44 This 37 yrs old Male presents to ER via Ambulatory with complaints of Chest rt Wall Pain. 09:44 Patient presents to the ED with a right lateral chest wall pain. Started about 4 AM. rt Reports it is a pinching sensation. States that the pain is somewhat worse with taking a deep breath. Denies shortness of breath, cough. Denies other acute complaints at this time. Symptoms are moderate severity, no other aggravating or alleviating factors.. Historical: - Allergies: 09:24 No Known Allergies; ph - Home Meds: 09:24 losartan oral [Active]; ph - PMHx: 09:24 Hypertension; ph - Immunization history:: Adult Immunizations unknown. - Social history:: Smoking status: Patient denies any tobacco usage or history of. - Family history:: not pertinent. ROS: 09:44 Constitutional: Negative for fever, chills, and weight loss, Respiratory: Negative for rt shortness of breath, cough, wheezing, and pleuritic chest pain, Abdomen/GI: Negative for abdominal pain, nausea, vomiting, diarrhea, and constipation, MS/Extremity: Negative for injury and deformity, Skin: Negative for injury, rash, and discoloration, Neuro: Negative for headache, weakness, numbness, tingling, and seizure, Psych: Negative for depression, anxiety, suicide ideation, homicidal ideation, and hallucinations. 09:44 Cardiovascular: Positive for chest pain, Negative for edema. Exam: 09:44 Constitutional: This is a well developed, well nourished patient who is awake, alert, rt and in no acute distress. Head/Face: Normocephalic, atraumatic. Chest/axilla: Normal chest wall appearance and motion. Nontender with no deformity. No lesions are appreciated. Cardiovascular: Regular rate and rhythm with a normal S1 and S2. No gallops, murmurs, or rubs. Normal PMI, no JVD. No pulse deficits. Respiratory: Lungs have equal breath sounds bilaterally, clear to auscultation and percussion. No rales, rhonchi or wheezes noted. No increased work of breathing, no retractions or nasal flaring. Abdomen/GI: Soft, non-tender, with normal bowel sounds. No distension or tympany. No guarding or rebound. No evidence of tenderness throughout. MS/ Extremity: Pulses equal, no cyanosis. Neurovascular intact. Full, normal range of motion. Neuro: Awake and alert, GCS 15, oriented to person, place, time, and situation. Cranial nerves II-XII grossly intact. Motor strength 5/5 in all extremities. Sensory grossly intact. Cerebellar exam normal. Normal gait. Psych: Awake, alert, with orientation to person, place and time. Behavior, mood, and affect are within normal limits. 09:44 ECG was reviewed by the Attending Physician. Vital Signs: 09:22 BP 167 / 107; Pulse 69; Resp 20; Temp 98; Pulse Ox 99% on R/A; Weight 122.47 kg; Height ph 5 ft. 3 in. ; 10:09 BP 163 / 101; Pulse 61; Resp 18; Pulse Ox 97% on R/A; ko1 11:39 BP 154 / 92; Pulse 62; Resp 16; Pulse Ox 98% on R/A; ko1 09:22 Body Mass Index 47.83 (122.47 kg, 160.02 cm) ph MDM: 09:36 Patient medically screened. rt 11:18 Differential diagnosis: Unstable angina, NH, pneumonia, pneumothorax, chest wall pain, rt PE. HEART Score: History: Slightly Suspicious (0), ECG: Normal (0), Age: < or = 45 years (0), Risk Factors: 1 or 2 risk factors (1), Troponin: < or = 1 x Normal Limit (0), Total Score = 1. Data reviewed: vital signs, nurses notes, lab test result(s), EKG, radiologic studies. Consideration of Admission/Observation Escalation of care including admission/observation considered. Heart score low, pain improved with Toradol, symptoms not consistent with cardiac etiology, does not require admission for rule out, onset of symptoms greater than 6 hours, 1 set of enzymes is sufficient to rule out any acute coronary syndrome. Independent interpretation of the following test(s) in the Emergency Department X-Ray: My interpretation is No pneumothorax, interpretation of the CT scan images. Test considered but Not performed: CT: Low suspicion for PE, CT angiogram not indicated. Care significantly affected by the following chronic conditions: Hypertension. Counseling: I had a detailed discussion with the patient and/or guardian regarding: the historical points, exam findings, and any diagnostic results supporting the discharge/admit diagnosis, radiology results, the need for outpatient follow up, to return to the emergency department if symptoms worsen or persist or if there are any questions or concerns that arise at home. 01/23 09:41 Order name: CBC with Diff; Complete Time: 10:20 rt 01/23 09:41 Order name: CMP; Complete Time: 10:20 rt 01/23 09:41 Order name: Troponin HS; Complete Time: 10:20 rt 01/23 09:41 Order name: Chest Single View XRAY; Complete Time: 10:54 rt EC: Rate is 63 beats/min. Rhythm is regular, Normal Sinus Rhythm with No ectopy. QRS [place] rt is Normal. OR interval is normal. QRS interval is normal. QT interval is normal. No Q waves. T waves are Normal. No ST changes noted. Interpreted by me. Administered Medications: 09:50 Drug: Ketorolac IM 30 mg Route: IM; Site: right deltoid; ko1 Disposition Summary: 01/23/23 11:18 Discharge Ordered Location: Home rt Problem: new rt Symptoms: have improved rt Condition: Stable rt Diagnosis - chest wall pain rt Followup: rt - With: Private Physician - When: 2 - 3 days - Reason: Discharge Instructions: - Discharge Summary Sheet rt - Chest Wall Pain rt Forms: - Work release form ko1 - Medication Reconciliation Form rt - Thank You Letter rt - Antibiotic Education rt - Prescription Opioid Use rt Signatures: Dispatcher [employer] Nadine Bee, RN RN Lily Talbert, RN RN ko1 Piero Verdugo MD MD rt
--- NOTE | 2023-01-23 11:18 | ER ---
Nurse's Notes [facility] Name: Errol De Los Santos Age: 37 yrs Sex: Male : 1985 Arrival Date: 01/23/2023 Time: 09:15 Bed 7 Private MD: Diagnosis: chest wall pain Presentation: 01/23 09:22 Chief complaint: Patient states: Was awakened at approx 0430 am by R sided chest pain, ph worse w/ inspiration, denies SOB, N/V or dizziness. Coronavirus screen: Vaccine status: Patient reports receiving the 2nd dose of the covid vaccine. Ebola Screen: No symptoms or risks identified at this time. Initial Sepsis Screen: Does the patient meet any 2 criteria? No. Patient's initial sepsis screen is negative. Does the patient have a suspected source of infection? No. Patient's initial sepsis screen is negative. Risk Assessment: Do you want to hurt yourself or someone else? Patient reports no desire to harm self or others. Onset of symptoms was January 23, 2023. :22 Method Of Arrival: Ambulatory 09:22 Acuity: ALDO 3 ph Triage Assessment: 09:24 General: Appears in no apparent distress. Behavior is calm, cooperative. Pain: ph Complains of pain in right lateral anterior chest and right breast. Historical: - Allergies: 09:24 No Known Allergies; ph - Home Meds: 09:24 losartan oral [Active]; ph - PMHx: 09:24 Hypertension; ph - Immunization history:: Adult Immunizations unknown. - Social history:: Smoking status: Patient denies any tobacco usage or history of. - Family history:: not pertinent. Screenin:45 [facility] ED Fall Risk Assessment (Adult) History of falling in the last 3 months, ko1 including since admission No falls in past 3 months (0 pts) Confusion or Disorientation No (0 pts) Intoxicated or Sedated No (0 pts) Impaired Gait No (0 pts) Mobility Assist Device Used No (0 pt) Altered Elimination No (0 pt) Score/Fall Risk Level 0 - 2 = Low Risk Oriented to surroundings, Maintained a safe environment, Educated pt \T\ family on fall prevention, incl call for assistance when getting out of bed, Assessed \T\ reinforced patient's understanding of fall precautions, Provided non-skid footwear, Hourly rounding (assess needs \T\ fall precautionary measures) done. Abuse screen: Denies threats or abuse. Denies injuries from another. Nutritional screening: No deficits noted. Tuberculosis screening: No symptoms or risk factors identified. Assessment: 09:45 General: Appears in no apparent distress. uncomfortable, Behavior is calm, cooperative, ko1 appropriate for age. Pain: Complains of pain in right breast and right lateral anterior chest. Neuro: No deficits noted. Cardiovascular: Reports chest pain. Respiratory: No deficits noted. GI: No signs and/or symptoms were reported involving the gastrointestinal system. : No deficits noted. EENT: No deficits noted. Derm: No deficits noted. Musculoskeletal: No deficits noted. 10:11 Reassessment: Patient appears in no apparent distress at this time. No changes from ko1 previously documented assessment. Patient and/or family updated on plan of care and expected duration. Pain level reassessed. Patient is alert, oriented x 3, equal unlabored respirations, skin warm/dry/pink. Vital Signs: 09:22 BP 167 / 107; Pulse 69; Resp 20; Temp 98; Pulse Ox 99% on R/A; Weight 122.47 kg; Height ph 5 ft. 3 in. ; 10:09 BP 163 / 101; Pulse 61; Resp 18; Pulse Ox 97% on R/A; ko1 11:39 BP 154 / 92; Pulse 62; Resp 16; Pulse Ox 98% on R/A; ko1 09:22 Body Mass Index 47.83 (122.47 kg, 160.02 cm) ph ED Course: 09:22 Patient arrived in ED. ko1 09:23 Piero Verdugo MD is Attending Physician. rt 09:24 Triage completed. ph 09:24 Arm band placed on Patient placed in an exam room, on a stretcher. ph 09:30 Patient has correct armband on for positive identification. Bed in low position. Call ko1 light in reach. Side rails up X 1. Client placed on continuous cardiac and pulse oximetry monitoring. NIBP monitoring applied. lacquer polisher on. Door closed. Noise minimized. Lights dimmed. Warm blanket given. 09:40 Lily Smith, TANNA is Primary Nurse. ko1 09:45 No provider procedures requiring assistance completed. Inserted saline lock: 20 gauge ko1 in right antecubital area, using aseptic technique. Blood collected. 09:51 Troponin HS Sent. ko1 09:51 CMP Sent. ko1 09:51 CBC with Diff Sent. ko1 10:37 Chest Single View XRAY In Process Unspecified. EDMS 11:39 IV discontinued, intact, bleeding controlled, No redness/swelling at site. Pressure ko1 dressing applied. Administered Medications: 09:50 Drug: Ketorolac IM 30 mg Route: IM; Site: right deltoid; ko1 Medication: 09:45 VIS not applicable for this client. ko1 Outcome: 11:18 Discharge ordered by . rt 11:39 Discharged to home ambulatory, with family. ko1 11:39 Condition: improved 11:39 Discharge instructions given to patient, family, Instructed on discharge instructions, follow up and referral plans. Demonstrated understanding of instructions, follow-up care. 11:40 Patient left the ED. ko1 Signatures: Dispatcher [employer] Nadine Bee RN RN Lily Talbert RN RN ko1 Piero Verdugo MD MD rt
[2023-01-23 11:55] VITALS: TEMP 98
[2023-01-23 11:57] VITALS: BP 154/92; O2SAT 98
--- NOTE | 2023-01-25 05:01 | EKG ---
Test Date: 2023-01-23 Test Time: 09:27:08 Ingot Passer: CK MEASUREMENT RESULTS: Intervals: Rate: 63 MS: 184 QRSD: 110 QT: 374 QTc: 382 [place]: P: 28 MS: 184 QRS: 63 T: 58 INTERPRETIVE STATEMENTS: Normal sinus rhythm Normal ECG Compared to ECG 10/11/2022 09:54:58 No significant changes Electronically Signed On 01-25-23 04:55:05 CDT by Jason Loera
== END 2023-01-23 11:40 | disposition home or self-care (01) ==
LOC: ER 09:15
DX: R07.89 Other chest pain (principal); I10 Essential (primary) hypertension
CPT/HCPCS: 36415; 71045; 80053; 84484; 85025; 93005

== ENCOUNTER 2023-07-07 09:22 | Day surgery (SDC) | payer OTHER, SELFPAY ==
[2023-07-05 14:49] LABS: Absolute Lymphocytes (CBC) 1.3 K/uL (0.7-4.9); Hematocrit 46.3 % (39.6-49.0); Lymphocytes % 23.8 % (15.3-44.8); MPV 8.8 fL (7.6-11.3); Platelets 146 thou/uL (152-406); RBC Red Blood Cell Count 5.58 M/uL (4.33-5.43)
[2023-07-05 14:53] LABS: Protime INR 1.08
[2023-07-05 15:02] LABS: Potassium 3.6 mEq/L (3.5-5.1)
[2023-07-07] MEDS ORDERED: CEFAZOLIN SODIUM 1 GM/VIAL ONE ×2 (09:56→13:06)
[2023-07-07] MEDS ORDERED: Ringers Lactate 1,000 ML IV ONE (09:56)
[2023-07-07] MEDS ORDERED: propofoL 200 MG/20 ML VIAL IV ONE (12:45)
[2023-07-07] MEDS ORDERED: FENTANYL CITR 100 MCG/2 ML ONE (12:45)
[2023-07-07] MEDS ORDERED: MIDAZOLAM HCL 2 MG/2 ML INJ ONE (12:45)
[2023-07-07] MEDS ORDERED: KETOROLAC 30 MG/ML INJ ONE (12:46)
[2023-07-07] MEDS ORDERED: ONDANSETRON 4 MG/2 ML VIAL ONE (12:46)
[2023-07-07] MEDS ORDERED: LIDOCAINE 2% MPF 5 ML VIAL ONE (12:46)
--- NOTE | 2023-07-07 13:32 | P.BOP ---
Preoperative diagnosis: right carpal tunnel syndrome Postoperative diagnosis: Same Primary procedure: Right open carpal tunnel release Speedometer Mechanic: NONE,NONE Estimated blood loss: 3 cc Specimen: none Findings: see dictation Anesthesia: General Complications: None Implants: none Fluids & blood products: per anesthesia record; TT: 19 mins @ 250 mmHg Transferred to: Recovery Room Condition: Good
[2023-07-07] MEDS ORDERED: EPHEDRINE SULF 50 MG/ML VIAL ONE (13:33)
[2023-07-07] MEDS ORDERED: BUPIVACAINE 0.25% PF 10 ML VIAL ONE (13:50)
[2023-07-07 14:33] VITALS: BP 121/76; TEMP 96.6; O2SAT 96
== END 2023-07-07 14:48 | disposition home or self-care (01) ==
LOC: OR 09:22
PROVIDERS: ATTEND Orthopaedic Surgery Sports Medicine
PROC: 01N50ZZ Release Median Nerve, Open Approach (ICD-10-PCS; principal; 2023-07-07 12:15)
DX: G56.01 Carpal tunnel syndrome, right upper limb (principal); M79.641 Pain in right hand; R20.0 Anesthesia of skin; R53.1 Weakness; I10 Essential (primary) hypertension
CPT/HCPCS: 36415; 80048; 85025; 85610; 85730; J0690; J2001; J2250; J2405; J2704; J3010; J7120